=== PATIENT | male | born 1940 | race Caucasian/White ===

== ENCOUNTER 2023-02-08 13:03 | Outpatient (CLI) | payer MEDICARE, OTHER | END 2023-02-08 13:04 | disposition critical access hospital (66) | LOC: EMS 13:03 | DX: I95.9 Hypotension, unspecified (principal) | CPT/HCPCS: A0425; A0429 ==

== ENCOUNTER 2023-02-26 02:46 | Outpatient (CLI) | payer MEDICARE, OTHER | END 2023-02-26 23:59 | disposition critical access hospital (66) | LOC: EMS 02:46 | DX: T50.911A Poisoning by multiple unspecified drugs, medicaments and biological substances, accidental (unintentional), initial encounter (principal); R03.1 Nonspecific low blood-pressure reading; R07.89 Other chest pain; R42 Dizziness and giddiness; R11.0 Nausea | CPT/HCPCS: A0425; A0427 ==

== ENCOUNTER 2023-06-02 06:17 | Outpatient (CLI) | payer MEDICARE, OTHER | END 2023-06-02 06:18 | disposition EMS.NT | LOC: EMS 06:17 | DX: Z03.89 Encounter for observation for other suspected diseases and conditions ruled out (principal) ==

== ENCOUNTER 2023-06-24 08:57 | Emergency (ER) | payer MEDICARE ==
[2023-06-24] MEDS ORDERED: ONDANSETRON ODT 4 MG TABLET TL STA (09:38)
[2023-06-24 09:52] LABS: BASOPHILS % (AUTO) 0.5 %; EOSINOPHILS # (AUTO) 0.1 10^3/uL (0.0-0.7); HCT - HEMATOCRIT 39.7 % (42.0-52.0); HGB - HEMOGLOBIN 12.9 g/dL (14.0-18.0); LYMPHOCYTES % (AUTO) 24.4 %; MEAN CORPUSCULAR HEMOGLOBIN 31.6 pg (27.0-31.0); MEAN CORPUSCULAR HGB CONC 32.5 g/dL (32.0-36.0); MEAN CORPUSCULAR VOLUME 97.3 fL (80.0-94.0); MEAN PLATELET VOLUME 9.6 fL (7.4-11.4); MONOCYTES # (AUTO) 0.6 10^3/uL (0.0-1.0); NEUTROPHILS # (AUTO) 5.5 10^3/uL (1.5-6.6); NEUTROPHILS % (AUTO) 66.5 %; PLT - PLATELET COUNT 187 10^3/uL (130-450); RED BLOOD COUNT 4.08 10^6/uL (4.70-6.10); RED CELL DISTRIBUTION WIDTH 13.1 % (12.0-15.0); WHITE BLOOD COUNT 8.3 x10^3/uL (4.8-10.8)
[2023-06-24 10:29] LABS: ALBUMIN 3.8 g/dL (3.2-5.5); ALBUMIN/GLOBULIN RATIO 1.3 (1.0-2.2); BILIRUBIN,TOTAL 0.5 mg/dL (0.2-1.0); CALCIUM 9.2 mg/dL (8.5-10.3); CREATININE 1.2 mg/dL (0.6-1.3); TOTAL PROTEIN 6.7 g/dL (6.4-8.9)
[2023-06-24] MEDS ORDERED: SODIUM CHLORIDE 0.9% 1,000 ML IV STA (10:32)
[2023-06-24 10:33] LABS: BILIRUBIN,URINE NEGATIVE (NEGATIVE); GLUCOSE, URINE (UA) NEGATIVE (NEGATIVE); KETONES,URINE (UA) NEGATIVE (NEGATIVE); LEUKOCYTE ESTERASE, URINE MODERATE (NEGATIVE); NITRITE,URINE POSITIVE (NEGATIVE); OCCULT BLOOD,URINE NEGATIVE (NEGATIVE); PH,URINE 8.5 PH (5.0-7.5); PROTEIN,URINE TRACE mg/dL (NEGATIVE); UROBILINOGEN,URINE 0.2 (NORMAL) E.U./dL (NORMAL)
--- NOTE | 2023-06-24 10:35 | ED Physician Documentation ---
PD HPI ABD PAIN - Stated complaint Stated Complaint: LT SIDE PX,BACK PX - Chief complaint Chief Complaint: Abd Pain - History obtained from History obtained from: Patient, Family - History of Present Illness Timing - onset: How many weeks ago (1) Timing - duration: Weeks (1) Timing - details: Gradual onset, Still present Quality: Sharp, Pain Location: LUQ Radiation: Left flank Improved by: Laying still Worsened by: Moving, Position, Palpation Associated symptoms: Nausea Similar symptoms before: Diagnosis (kidney stone) Recently seen: Not recently seen - Additional information Additional information: Angel Orourke is an 82-year-old male with a history of traumatic brain injury who is reporting that over the past week he has had pain in his back if he goes to move or move around. He has been uncomfortable enough to have difficulty sleeping and is brought to the emergency department by his and daughter this morning. Review of Systems Constitutional: denies: Fever, Chills, Myalgias Ears: denies: Ear pain Nose: denies: Congestion Throat: denies: Sore throat Cardiac: denies: Chest pain / pressure, Palpitations Respiratory: denies: Dyspnea, Cough GI: reports: Abdominal Pain, Constipation (currently relieved). denies: Nausea, Vomiting, Diarrhea : denies: Dysuria, Frequency Skin: denies: Rash Musculoskeletal: reports: Back pain. denies: Neck pain, Extremity pain Neurologic: denies: Generalized weakness, Focal weakness, Numbness PD PAST MEDICAL HISTORY - Past Medical History Past Medical History: Yes Cardiovascular: Coronary artery disease Neuro: CVA : Kidney stones - Past Surgical History Past Surgical History: No - Present Medications Home Medications: Ambulatory Orders Medication Instructions Recorded Confirmed cephALEXin [Keflex] 500 mg PO Q6H #28 cap 06/24/23 - Allergies Allergies/Adverse Reactions: Allergies Allergy/AdvReac Type Severity Reaction Status Date / Time No Known Drug Allergies Allergy Verified 06/24/23 09:20 - Social History Does the pt smoke?: No Smoking Status: Never smoker Does the pt drink ETOH?: No Does the pt have substance abuse?: No - Immunizations Immunizations are current?: Yes - POLST Patient has POLST: No PD ED PE NORMAL - Vitals Vital signs reviewed: Yes (normal ) - General General: Alert and oriented X 3, No acute distress, Well developed/nourished - HEENT HEENT: Atraumatic, PERRL, EOMI, Other (dry mucous membranes ) - Neck Neck: Supple, no meningeal sign, No bony TTP - Cardiac Cardiac: RRR, No murmur - Respiratory Respiratory: No respiratory distress, Clear bilaterally - Abdomen Abdomen: Normal bowel sounds, Soft, Non tender, Non distended, No organomegaly - Back Back: No spinal TTP, Other (Tenderness to the back near paraspinous muscles at L2. 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, No motor deficit, No sensory deficit, Normal speech Eye Opening: Spontaneous Motor: Obeys Commands Verbal: Oriented GCS Score: 15 - Psych Psych: Normal mood, Normal affect Results - Vitals Vitals: Vital Signs - 24 hr 06/24/23 06/24/23 09:16 11:20 Temperature 36.0 C L Heart Rate 68 67 Respiratory 20 18 Rate Blood Pressure 130/75 212/133 H O2 Saturation 96 94 Oxygen O2 Source Room air - Labs Labs: Laboratory Tests 06/24/23 06/24/23 06/24/23 09:47 10:03 10:05 WBC 8.3 RBC 4.08 L Hgb 12.9 L Hct 39.7 L MCV 97.3 H MCH 31.6 H MCHC 32.5 RDW 13.1 Plt Count 187 MPV 9.6 Neut # (Auto) 5.5 Lymph # (Auto) 2.0 [place] # (Auto) 0.6 Eos # (Auto) 0.1 Baso # (Auto) 0.0 Absolute Nucleated RBC 0.00 Nucleated RBC % 0.0 Sodium 142 Potassium 4.0 Chloride 109 Carbon Dioxide 26 Anion Gap 7.0 BUN 23 H Creatinine 1.2 Estimated GFR (MDRD) 58 L Glucose 115 H Calcium 9.2 Total Bilirubin 0.5 AST 14 ALT 17 Alkaline Phosphatase 88 Total Protein 6.7 Albumin 3.8 Globulin 2.9 Albumin/Globulin Ratio 1.3 Lipase 28 Urine Color YELLOW Urine Clarity CLD Urine pH 8.5 H Ur Specific [place] 1.010 Urine Protein TRACE Urine Glucose (UA) NEGATIVE Urine Ketones NEGATIVE Urine Occult Blood NEGATIVE Urine Nitrite POSITIVE H Urine Bilirubin NEGATIVE Urine Urobilinogen 0.2 (NORMAL) Ur Leukocyte Esterase MODERATE H Urine RBC 0-5 Urine WBC >25 H Ur Squamous Epith Cells RARE Squamous Urine Crystals 6-10 Triple Phos Urine Bacteria Moderate H Ur Microscopic Review INDICATED Urine Culture Comments INDICATED - Rads (name of study) CT ab pel Relevant Findings:: Prelim report reviewed (Impression: No acute process. Normal appendix.), EMP independent interpretation of test Procedures - Bedside sono Bedside sono by EMP: With use of POCUS the the left kidney is imaged there is no evidence of hydronephrosis and the kidney is sonographically nontender. - IVC sono (time) 1020 Bedside IVC sono: IVC measures (cm) (0.93), Dehydration (est 1-2 liter deficit) PD Medical Decision Making - ED course Complexity details: reviewed old records, reviewed results, re-evaluated patient, considered differential, d/w patient, d/w family Reviewed Lab Results: We reviewed a complete blood count showing a normal white blood cell count hemoglobin mildly depressed at 12.9 hematocrit mildly depressed at 39.7 platelets normal at 187,000 the values for the hemoglobin hematocrit are similar for the patient with prior visits in January of last year BUN is mildly elevated at 23 creatinine normal at 1.2 electrolytes normal liver functions normal urinalysis shows a pH elevated at 8.5 a specific gravity 1.010 trace protein positive for nitrite moderate leukocyte Estrace 0-5 red blood cells per high-powered field and greater than 25 white blood cells per high-powered field with moderate bacteria. The specimen made the grade for culture. My interpretation of these results are the patient has infection in the urinary tract. He has tenderness to his back over L2 consistent with positioning of his kidney seen on CT scan and the diagnosis is being made of pyelonephritis. ED course: 82-year-old Angel Orourke presents to the emergency department with left flank pain without fever or dysuria and he appears to have urinary tract infection and a tender left kidney. He is diagnosed with pyelonephritis is given a dose of Rocephin intravenously. He is found to be dehydrated on interrogation of the inferior vena cava with POCUS and he is administered saline as well. At the conclusion of treatment he feels improved his pain is improved as well. Departure - Departure Disposition: 01 Home, Self Care Clinical Impression: Pyelonephritis Condition: Stable Instructions: ED UTI Pyelonephritis Male Follow-Up: Michelle Victoria PA [Primary Care Provider] - Prescriptions: cephALEXin [Keflex] 500 mg PO Q6H #28 cap Comments: Angel, today it looks like you have an infection in your kidney on the left side and we have E scribed some antibiotic to the [facility] in [place]. Our expectations with treatment are slow and steady improvement in the pain in your back and resolution of your symptoms within a week. Progression of symptoms including vomiting or fever are reasons to return to the emergency department. Forms: PCP List
[2023-06-24 10:38] LABS: CLARITY,URINE CLD (CLEAR)
[2023-06-24] MEDS ORDERED: iohexoL-300 100 ML VIAL ONE (10:42)
[2023-06-24 10:48] LABS: BACTERIA,URINE Moderate /HPF (None Seen); CRYSTALS,URINE 6-10 Triple Phos /LPF; RBC,URINE 0-5 /HPF (0-5); SQUAMOUS EPITHELIAL CELL,UR RARE Squamous (<= Few); WBC,URINE >25 /HPF (0-3)
[2023-06-24] MEDS ORDERED: cefTRIAXone 1 GM in SODIUM CHLORIDE 0.9% MINIBAG 100 ML IV STA (11:08)
--- NOTE | 2023-06-24 12:03 | CT Report ---
PROCEDURE: Abdomen/Pelvis W INDICATIONS: LUQ pain CONTRAST: Omni 300 100ml TECHNIQUE: After the administration of intravenous contrast, a CT scan of the abdomen and pelvis was performed. Images were recorded and evaluated at appropriate window settings. Reformats: coronal and sagittal. F or radiation dose reduction, the following was used: automated exposure control, adjustment of mA and /or kV according to patient size. COMPARISON: None. FINDINGS: Image quality: Diagnostic. Lower chest: Unremarkable. Liver: No solid mass. Gallbladder and biliary tree: Calculi within the gallbladder lumen are present. Spleen: No splenomegaly. Pancreas: No pancreatic ductal dilation. Adrenals: No adrenal nodule. Kidneys and ureters: No hydronephrosis. No renal cystic lesion which requires follow up. No solid mas s. Stomach, bowel and peritoneum: No bowel distension. No pathologic free fluid. Normal appendix. Lymph nodes: No central or retroperitoneal adenopathy. Vessels: No infrarenal aortic aneurysm. PELVIS Reproductive organs: Unremarkable. Bladder: No abnormal wall thickening, accounting for underdistention. Pelvic lymph nodes: No pelvic adenopathy by size criteria. Bones: No aggressive osseous abnormality. Other: No significant ventral or inguinal hernia. IMPRESSION: 1. No acute process. 2. Normal appendix. Reviewed by: Urban Rhodes MD on 06/24/2023 12:01 PM [facility] Approved by: Urban Rhodes MD on 06/24/2023 12:01 PM [facility] Station ID: [id number]
[2023-06-24 13:24] VITALS: BP 169/108; O2SAT 96
[2023-06-24] MEDS ORDERED: iohexoL-300 100 ML VIAL IVP ONE (15:18)
== END 2023-06-24 13:24 | disposition home or self-care (01) ==
LOC: ED 08:57
DX: N12 Tubulo-interstitial nephritis, not specified as acute or chronic (principal); B96.4 Proteus (mirabilis) (morganii) as the cause of diseases classified elsewhere; E86.0 Dehydration; I25.10 Atherosclerotic heart disease of native coronary artery without angina pectoris; Z86.73 Personal history of transient ischemic attack (TIA), and cerebral infarction without residual deficits
CPT/HCPCS: 36415; 74177; 80053; 81001; 83690; 85025; 87077; 87086; 87181; 96365; 96366; 99284; Q9967; 81003

== ENCOUNTER 2023-07-19 10:49 | Outpatient (CLI) | payer MEDICARE | END 2023-07-19 23:59 | disposition critical access hospital (66) | LOC: EMS 10:49 | DX: R55 Syncope and collapse (principal); I95.9 Hypotension, unspecified; M54.2 Cervicalgia; R51.9 Headache, unspecified; R53.1 Weakness | CPT/HCPCS: A0425; A0429 ==

== ENCOUNTER 2023-07-19 11:20 | Emergency (ER) | payer MEDICARE ==
--- NOTE | 2023-07-19 11:40 | ED Physician Documentation ---
History of Present Illness - Stated complaint Stated Complaint: GLF/HEAD INJURY - Chief complaint Chief Complaint: Neuro - History obtained from History obtained from: Patient, EMS - Additonal information Additional information: 82-year-old gentleman with history of traumatic brain injury, epilepsy, and coronary disease who lives with family and is generally wheelchair-bound but transfers. He had a reported syncopal episode on the toilet today and fell. Patient actually denies the syncope but paramedics that he was syncopal and was hypotensive on scene with a systolic of 90. Patient does not feel injured per se, but paramedics report that he did hit his head and was injured. Patient's only complaint is shakiness of the legs. PD PAST MEDICAL HISTORY - Past Medical History Past Medical History: Yes Cardiovascular: Coronary artery disease Neuro: CVA : Kidney stones - Past Surgical History Past Surgical History: No - Present Medications Home Medications: Ambulatory Orders Medication Instructions Recorded Confirmed Apixaban [Eliquis] 5 mg PO BID 07/19/23 07/19/23 Aspirin [[place] Aspirin] 81 mg PO DAILY 07/19/23 07/19/23 Atorvastatin [Lipitor] 20 mg PO QPM 07/19/23 07/19/23 Docusate Sodium [Dss] 250 mg PO DAILY PRN 07/19/23 07/19/23 Finasteride [Proscar] 5 mg PO DAILY 07/19/23 07/19/23 Furosemide [Lasix] 20 mg PO DAILY 07/19/23 07/19/23 Gabapentin [Neurontin] 600 mg PO BID 07/19/23 07/19/23 Isosorbide Mononitrate [Isosorbide 30 mg PO DAILY 07/19/23 07/19/23 Mononitrate ER] Losartan [Cozaar] 50 mg PO BID 07/19/23 07/19/23 Nitroglycerin [Nitrostat] 0.4 mg SL [id number] PRN 07/19/23 07/19/23 Pantoprazole [Protonix] 40 mg PO DAILY 07/19/23 07/19/23 Tamsulosin [Flomax] 1 cap PO DAILY 07/19/23 07/19/23 Trazodone HCl 100 mg PO HS 07/19/23 07/19/23 Venlafaxine HCl [Effexor Xr] 300 mg PO HS 07/19/23 07/19/23 carvediloL [Coreg] 12.5 mg PO BID 07/19/23 07/19/23 cloNIDine [Catapres] 0.1 mg PO ONCE PRN 07/19/23 07/19/23 diphenhydrAMINE [Benadryl] 25 mg PO HS 07/19/23 07/19/23 hydrALAZINE [Apresoline] 25 mg PO BID 07/19/23 07/19/23 lamoTRIgine [Lamictal] 150 mg PO BID 07/19/23 07/19/23 levETIRAcetam [Keppra] 100 mg PO BID 07/19/23 07/19/23 - Allergies Allergies/Adverse Reactions: Allergies Allergy/AdvReac Type Severity Reaction Status Date / Time No Known Drug Allergies Allergy Verified 07/19/23 11:35 - Social History Does the pt smoke?: No Smoking Status: Never smoker Does the pt drink ETOH?: No Does the pt have substance abuse?: No - Immunizations Immunizations are current?: Yes - POLST Patient has POLST: No PD ED PE NORMAL - Vitals Vital signs reviewed: Yes - General General: Alert and oriented X 3, No acute distress - HEENT HEENT: PERRL, EOMI, Other (Dry mucous membranes) - Neck Neck: Supple, no meningeal sign, No bony TTP - Cardiac Cardiac: RRR, No murmur - Respiratory Respiratory: No respiratory distress, Clear bilaterally - Abdomen Abdomen: Non tender - Back Back: No CVA TTP, No spinal TTP - Derm Derm: Normal color, Warm and dry - Extremities Extremities: Other (All major joints are palpated and ranged without tenderness or limited range of motion.) - Neuro Neuro: Alert and oriented X 3, 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 Relevant findings are: Rate: Rate (enter#) (69) Rhythm: NSR [place]: Normal Intervals: Prolonged MS, LBBB (incomplete) QRS: LVH Ischemia: No: ST elevation c/w ischemia - Labs Labs: Laboratory Tests 07/19/23 07/19/23 07/19/23 11:27 11:27 11:51 WBC 7.9 RBC 4.33 L Hgb 13.8 L Hct 43.0 MCV 99.3 H MCH 31.9 H MCHC 32.1 RDW 12.9 Plt Count 174 MPV 9.4 Neut # (Auto) 5.9 Lymph # (Auto) 1.3 L [place] # (Auto) 0.5 Eos # (Auto) 0.1 Baso # (Auto) 0.0 Absolute Nucleated RBC 0.00 Nucleated RBC % 0.0 Sodium 141 Potassium 4.1 Chloride 107 Carbon Dioxide 29 Anion Gap 5.0 L BUN 23 H Creatinine 1.6 H Estimated GFR (MDRD) 42 L Glucose 231 H Lactic Acid 3.2 H* Calcium 9.6 Phosphorus 2.8 Magnesium 2.1 Total Bilirubin 0.5 AST 16 ALT 19 Alkaline Phosphatase 89 Total Creatine Kinase 37 Total Protein 6.7 Albumin 3.8 Globulin 2.9 Albumin/Globulin Ratio 1.3 Urine Color Urine Clarity Urine pH Ur Specific [place] Urine Protein Urine Glucose (UA) Urine Ketones Urine Occult Blood Urine Nitrite Urine Bilirubin Urine Urobilinogen Ur Leukocyte Esterase Ur Microscopic Review Urine Culture Comments Ethyl Alcohol < 10.0 07/19/23 07/19/23 13:38 13:39 WBC RBC Hgb Hct MCV MCH MCHC RDW Plt Count MPV Neut # (Auto) Lymph # (Auto) [place] # (Auto) Eos # (Auto) Baso # (Auto) Absolute Nucleated RBC Nucleated RBC % Sodium Potassium Chloride Carbon Dioxide Anion Gap BUN Creatinine Estimated GFR (MDRD) Glucose Lactic Acid 2.0 Calcium Phosphorus Magnesium Total Bilirubin AST ALT Alkaline Phosphatase Total Creatine Kinase Total Protein Albumin Globulin Albumin/Globulin Ratio Urine Color LIGHT YELLOW Urine Clarity CLEAR Urine pH 5.5 Ur Specific [place] 1.015 Urine Protein NEGATIVE Urine Glucose (UA) NEGATIVE Urine Ketones NEGATIVE Urine Occult Blood NEGATIVE Urine Nitrite NEGATIVE Urine Bilirubin NEGATIVE Urine Urobilinogen 0.2 (NORMAL) Ur Leukocyte Esterase NEGATIVE Ur Microscopic Review NOT INDICATED Urine Culture Comments NOT INDICATED Ethyl Alcohol - Rads (name of study) CT head showing remote craniotomy with temporal encephalomalacia but no trauma. CT C-spine with degenerative changes, no trauma. Relevant Findings:: Final report received, EMP independent interpretation of test PD Medical Decision Making - ED course ED course: 82-year-old gentleman who is mostly in a wheelchair and transfers on his own presents after a fall in the bathroom with likely syncopal episode today and potential report of head injury. Workup in the emergency department demonstrates an unremarkable CBC with just mild anemia and macrocytic indices, his CMP does show evidence of JOY with prerenal azotemia and a lactic acidosis. Urinalysis was negative and there is nothing in the history or physical to suggest infection so he was administered 2 L of IV fluid and on recheck his lactate was now normal at 2.0. He was feeling better and back to normal and had no complaints at that point. He is on 2 diuretics and the queried whether she should continue those. I discussed with them for a while that the ideal thing would be if he could weigh himself daily and figure out what his usual weight is and then titrate his diuretics based on that, because of his mobility though that will not be possible so advised to titrate diuretics based on any edema or lack thereof. Departure - Departure Disposition: 01 Home, Self Care Clinical Impression: Syncope Qualifiers: Syncope type: unspecified Qualified Code(s): R55 - Syncope and collapse Head injury Qualifiers: Encounter type: initial encounter Qualified Code(s): S09.90XA - Unspecified injury of head, initial encounter Condition: Good Record reviewed to determine appropriate education?: Yes Instructions: ED Fainting Unkn Cause Comments: He was seen today for syncopal episode with possible head injury. We did find him to be dehydrated and we rechecked his dehydration numbers after 2 L of IV fluids and they were much better. The remainder of his blood work was unremarkable. It sounds like it is a recurrent issue with him getting dehydrated so you could stop his diuretics for now and just restart them if he starts to feel like he is getting puffy in his ankles or short of breath. We did talk about maybe trying to get him weight every day to see what his weight is but given his mobility issues that obviously will not be doable. Call your doctor to arrange a follow-up appointment, make the next available appointment. In the interim, return anytime if worse or if new symptoms develop. Forms: PCP List Discharge Date/Time: 07/19/23 15:03
[2023-07-19 11:45] LABS: BASOPHILS % (AUTO) 0.4 %; EOSINOPHILS # (AUTO) 0.1 10^3/uL (0.0-0.7); HGB - HEMOGLOBIN 13.8 g/dL (14.0-18.0); LYMPHOCYTES # (AUTO) 1.3 10^3/uL (1.5-3.5); LYMPHOCYTES % (AUTO) 16.6 %; MEAN CORPUSCULAR HEMOGLOBIN 31.9 pg (27.0-31.0); MEAN CORPUSCULAR HGB CONC 32.1 g/dL (32.0-36.0); MEAN CORPUSCULAR VOLUME 99.3 fL (80.0-94.0); MEAN PLATELET VOLUME 9.4 fL (7.4-11.4); MONOCYTES # (AUTO) 0.5 10^3/uL (0.0-1.0); MONOCYTES % (AUTO) 6.8 %; NEUTROPHILS # (AUTO) 5.9 10^3/uL (1.5-6.6); NEUTROPHILS % (AUTO) 74.9 %; PLT - PLATELET COUNT 174 10^3/uL (130-450); RED BLOOD COUNT 4.33 10^6/uL (4.70-6.10); RED CELL DISTRIBUTION WIDTH 12.9 % (12.0-15.0); WHITE BLOOD COUNT 7.9 x10^3/uL (4.8-10.8)
[2023-07-19] MEDS: SODIUM CHLORIDE 0.9% 1,000 ML IV STA ×2 (11:47→12:54)
[2023-07-19 12:06] LABS: ALBUMIN 3.8 g/dL (3.2-5.5); ALBUMIN/GLOBULIN RATIO 1.3 (1.0-2.2); ALKALINE PHOSPHATASE 89 IU/L (42-121); ALT ALANINE AMINOTRANSFERASE 19 IU/L (10-60); AST ASPARTATE AMINOTRANSFERASE 16 IU/L (10-42); BILIRUBIN,TOTAL 0.5 mg/dL (0.2-1.0); BUN - BLOOD UREA NITROGEN 23 mg/dL (6-20); CALCIUM 9.6 mg/dL (8.5-10.3); CARBON DIOXIDE - CO2 29 mmol/L (21-32); CHLORIDE 107 mmol/L (101-111); CK- CREATINE KINASE 37 IU/L (30-223); CREATININE 1.6 mg/dL (0.6-1.3); ETOH - ETHANOL < 10.0 mg/dL; GFR - MDRD 42 (>89); GLUCOSE 231 mg/dL (74-104); MAGNESIUM 2.1 mg/dL (1.7-2.3); PHOSPHORUS 2.8 mg/dL (2.5-5.0); POTASSIUM 4.1 mmol/L (3.5-4.5); SODIUM 141 mmol/L (135-145); TOTAL PROTEIN 6.7 g/dL (6.4-8.9)
--- NOTE | 2023-07-19 13:09 | CT Report ---
PROCEDURE: Head WO INDICATIONS: head inj TECHNIQUE: Noncontrast 4.5 mm thick angled axial sections acquired from the foramen magnum to the vertex. For r adiation dose reduction, the following was used: automated exposure control, adjustment of mA and/or kV according to patient size. COMPARISON: 02/08/2023. FINDINGS: Image quality: Excellent. CSF spaces: Basal cisterns are patent. No extra-axial fluid collections. Ventricles are normal in size and shape. Brain: No midline shift. No intracranial masses or hemorrhage. Rahman-white matter interface is norm al. Anterior right temporal encephalomalacia, unchanged, possibly remote trauma versus infarct versu s resection. Age-related volume loss and small vessel ischemic change. Skull and face: Remote right temporal craniotomy. Calvarium and visualized facial bones are intact, without suspicious lesions. Sinuses: Visualized sinuses and mastoids are clear. IMPRESSION: 1. Stable findings, remote right temporal craniotomy and anterior temporal encephalomalacia. 2. No acute intracranial process. Reviewed by: Jacinto Bailey MD on 07/19/2023 1:08 PM PST Approved by: Jacinto Bailey MD on 07/19/2023 1:08 PM PST Station ID: [id number]
--- NOTE | 2023-07-19 13:11 | CT Report ---
PROCEDURE: Cervical Spine WO INDICATIONS: neck pain, fall TECHNIQUE: Noncontrast 3 mm thick sections acquired from the skull base to the T4 level. Sagittal and coronal r eformats were then constructed. For radiation dose reduction, the following was used: automated exp osure control, adjustment of mA and/or kV according to patient size. COMPARISON: None. FINDINGS: Image quality: Excellent. Multilevel cervical facet arthropathy. Posterior disc plus osteophyte at C4-C5 and C5-C6 with a degre e of canal stenosis at these levels. Multilevel bony foraminal narrowing. Bones: No fractures or dislocations. Visualized superior ribs are intact. Soft tissues: Prevertebral soft tissues are normal in thickness. No paravertebral hematomas. No ap ical pneumothoraces. IMPRESSION: 1. No acute cervical fracture or dislocation. 2. Cervical spondylosis. Findings include multilevel facet arthropathy, foraminal narrowing, and a de gree of canal stenosis. Reviewed by: Jacinto Bailey MD on 07/19/2023 1:10 PM PST Approved by: Jacinto Bailey MD on 07/19/2023 1:10 PM PST Station ID: [id number]
[2023-07-19 14:10] LABS: CLARITY,URINE CLEAR (CLEAR); LEUKOCYTE ESTERASE, URINE NEGATIVE (NEGATIVE); NITRITE,URINE NEGATIVE (NEGATIVE); UROBILINOGEN,URINE 0.2 (NORMAL) E.U./dL (NORMAL)
[2023-07-19 14:11] LABS: BILIRUBIN,URINE NEGATIVE (NEGATIVE); GLUCOSE, URINE (UA) NEGATIVE (NEGATIVE); KETONES,URINE (UA) NEGATIVE (NEGATIVE); OCCULT BLOOD,URINE NEGATIVE (NEGATIVE); PH,URINE 5.5 PH (5.0-7.5); PROTEIN,URINE NEGATIVE (NEGATIVE)
[2023-07-19 15:10] VITALS: BP 149/89; O2SAT 100
== END 2023-07-19 15:03 | disposition home or self-care (01) ==
LOC: EDUNIT# → ED 11:20
DX: R55 Syncope and collapse (principal); S09.90XA Unspecified injury of head, initial encounter; W18.12XA Fall from or off toilet with subsequent striking against object, initial encounter; Y93.E8 Activity, other personal hygiene; Y92.002 Bathroom of unspecified non-institutional (private) residence as the place of occurrence of the external cause; E86.0 Dehydration; Z79.899 Other long term (current) drug therapy
CPT/HCPCS: 36415; 70450; 72125; 80053; 81003; 82550; 83605; 83735; 84100; 85025; 93005; 96360; 96361; 99284; G0480; 81001; 82077; 87086

== ENCOUNTER 2023-08-05 08:57 | Outpatient (CLI) | payer MEDICARE | END 2023-08-05 23:59 | disposition EMS.NT | LOC: EMS 08:57 | DX: Z74.2 Need for assistance at home and no other household member able to render care (principal) ==

== ENCOUNTER 2023-09-02 17:37 | Outpatient (CLI) | payer MEDICARE | END 2023-09-02 17:38 | disposition critical access hospital (66) | LOC: EMS 17:37 | DX: R46.89 Other symptoms and signs involving appearance and behavior (principal); R30.9 Painful micturition, unspecified; F03.90 Unspecified dementia, unspecified severity, without behavioral disturbance, psychotic disturbance, mood disturbance, and anxiety | CPT/HCPCS: A0425; A0427 ==

== ENCOUNTER 2023-09-02 18:10 | Observation (INO) | payer MEDICARE ==
--- NOTE | 2023-09-02 18:15 | ED Physician Documentation ---
PD HPI ALTERED MENTAL STATUS - Stated complaint Stated Complaint: AMS - History obtained from History obtained from: Patient, EMS - Additional information Additional information: He has a history of TBI, epilepsy, coronary disease, potentially dementia. Lives at home with family. Over the last couple of days he has had foul- smelling urine, slight confusion and feeling warm. PD PAST MEDICAL HISTORY - Past Medical History Cardiovascular: Coronary artery disease Neuro: CVA : Kidney stones - Past Surgical History Past Surgical History: No - Present Medications Home Medications: Ambulatory Orders Medication Instructions Recorded Confirmed Apixaban [Eliquis] 5 mg PO BID 07/19/23 09/02/23 Aspirin [[place] Aspirin] 81 mg PO DAILY 07/19/23 09/02/23 Atorvastatin [Lipitor] 20 mg PO QPM 07/19/23 09/02/23 Docusate Sodium [Dss] 250 mg PO DAILY PRN 07/19/23 09/02/23 Finasteride [Proscar] 5 mg PO DAILY 07/19/23 09/02/23 Furosemide [Lasix] 10 mg PO DAILY 07/19/23 09/02/23 Gabapentin [Neurontin] 600 mg PO BID 07/19/23 09/02/23 Isosorbide Mononitrate [Isosorbide 30 mg PO DAILY 07/19/23 09/02/23 Mononitrate ER] Losartan [Cozaar] 50 mg PO BID 07/19/23 09/02/23 Nitroglycerin [Nitrostat] 0.4 mg SL [id number] PRN 07/19/23 09/02/23 Pantoprazole [Protonix] 40 mg PO DAILY 07/19/23 09/02/23 Tamsulosin [Flomax] 1 cap PO DAILY 07/19/23 09/02/23 Trazodone HCl 100 mg PO HS 07/19/23 09/02/23 Venlafaxine HCl [Effexor Xr] 300 mg PO HS 07/19/23 09/02/23 carvediloL [Coreg] 12.5 mg PO BID 07/19/23 09/02/23 cloNIDine [Catapres] 0.1 mg PO ONCE PRN 07/19/23 09/02/23 diphenhydrAMINE [Benadryl] 25 mg PO HS 07/19/23 09/02/23 hydrALAZINE [Apresoline] 25 mg PO BID 07/19/23 09/02/23 lamoTRIgine [Lamictal] 150 mg PO BID 07/19/23 09/02/23 levETIRAcetam [Keppra] 100 mg PO BID 07/19/23 09/02/23 - Allergies Allergies/Adverse Reactions: Allergies Allergy/AdvReac Type Severity Reaction Status Date / Time No Known Drug Allergies Allergy Verified 09/02/23 18:42 - Social History Does the pt smoke?: No Smoking Status: Never smoker Does the pt drink ETOH?: No Does the pt have substance abuse?: No - Immunizations Immunizations are current?: Yes - POLST Patient has POLST: No PD ED PE NORMAL - Vitals Vital signs reviewed: Yes - General General: Other (He is alert and oriented to person and place but not time or events.) - HEENT HEENT: Other (Dry mucous membranes) - Neck Neck: Supple, no meningeal sign, No bony TTP - Cardiac Cardiac: RRR, No murmur, Other (Extensive sternotomy scar) - Respiratory Respiratory: No respiratory distress, Clear bilaterally - Abdomen Abdomen: Normal bowel sounds, Soft, Non tender - Neuro Eye Opening: Spontaneous Motor: Obeys Commands Verbal: Confused GCS Score: 14 Results - Vitals Vitals: Vital Signs - 24 hr 09/02/23 09/02/23 18:13 21:00 Temperature 37.6 C Heart Rate 80 90 Respiratory 16 20 Rate Blood Pressure 149/78 H 126/66 O2 Saturation 94 98 Oxygen O2 Source Room air - EKG (time done) 2016 EKG releavant findings:: EKG personally interpreted by author of this note. Relevant findings are: Rate: Rate (enter#) (75) Rhythm: NSR, LAE [place]: Normal Intervals: Prolonged QT QRS: LVH Ischemia: Non specific changes. No: ST elevation c/w ischemia - Labs Labs: Laboratory Tests 09/02/23 09/02/23 09/02/23 18:25 18:30 18:30 WBC 7.8 RBC 4.37 L Hgb 13.5 L Hct 42.3 MCV 96.8 H MCH 30.9 MCHC 31.9 L RDW 13.1 Plt Count 176 MPV 9.5 Neut # (Auto) 7.2 H Lymph # (Auto) 0.3 L [place] # (Auto) 0.3 Eos # (Auto) 0.0 Baso # (Auto) 0.0 Absolute Nucleated RBC 0.00 Nucleated RBC % 0.0 Sodium 141 Potassium 3.6 Chloride 109 Carbon Dioxide 26 Anion Gap 6.0 BUN 24 H Creatinine 1.3 Estimated GFR (MDRD) 53 L Glucose 169 H Lactic Acid Calcium 8.5 Magnesium 1.6 L Total Bilirubin 0.8 AST 15 ALT 15 Alkaline Phosphatase 83 Troponin I High Sens B-Natriuretic Peptide Total Protein 6.2 L Albumin 3.6 Globulin 2.6 Albumin/Globulin Ratio 1.4 Urine Color Urine Clarity Urine pH Ur Specific [place] Urine Protein Urine Glucose (UA) Urine Ketones Urine Occult Blood Urine Nitrite Urine Bilirubin Urine Urobilinogen Ur Leukocyte Esterase Ur Microscopic Review Urine Culture Comments Nasal Adenovirus (PCR) NOT DETECTED Nasal B. parapertussis DNA (PCR) NOT DETECTED Nasal Coronavir 229E PCR NOT DETECTED Nasal Coronavir HKU1 PCR NOT DETECTED Nasal Coronavir NL63 PCR NOT DETECTED Nasal Coronavir OC43 PCR NOT DETECTED Nasal Enterovir/Rhinovir PCR NOT DETECTED Nasal Influenza B PCR NOT DETECTED Nasal Influenza A PCR NOT DETECTED Nasal Parainfluen 1 PCR NOT DETECTED Nasal Parainfluen 2 PCR NOT DETECTED Nasal Parainfluen 3 PCR NOT DETECTED Nasal Parainfluen 4 PCR NOT DETECTED Nasal RSV (PCR) NOT DETECTED Nasal B.pertussis DNA PCR NOT DETECTED Nasal C.pneumoniae (PCR) NOT DETECTED [place] Human Metapneumo PCR NOT DETECTED Nasal M.pneumoniae (PCR) NOT DETECTED Nasal SARS-CoV-2 (PCR) NOT DETECTED Urine Opiates Screen Ur Buprenorphine Scrn Ur Oxycodone Screen Urine Methadone Screen Ur Barbiturates Screen Ur Tricyclics Screen Ur Phencyclidine Scrn Ur Amphetamine Screen U Methamphetamines Scrn U Benzodiazepines Scrn Urine Cocaine Screen U Cannabinoids Screen Ur Drug Screen Comment Ethyl Alcohol 09/02/23 09/02/23 09/02/23 18:30 18:30 18:37 WBC RBC Hgb Hct MCV MCH MCHC RDW Plt Count MPV Neut # (Auto) Lymph # (Auto) [place] # (Auto) Eos # (Auto) Baso # (Auto) Absolute Nucleated RBC Nucleated RBC % Sodium Potassium Chloride Carbon Dioxide Anion Gap BUN Creatinine Estimated GFR (MDRD) Glucose Lactic Acid 2.3 H Calcium Magnesium Total Bilirubin AST ALT Alkaline Phosphatase Troponin I High Sens 29.3 H* B-Natriuretic Peptide 804 H Total Protein Albumin Globulin Albumin/Globulin Ratio Urine Color Urine Clarity Urine pH Ur Specific [place] Urine Protein Urine Glucose (UA) Urine Ketones Urine Occult Blood Urine Nitrite Urine Bilirubin Urine Urobilinogen Ur Leukocyte Esterase Ur Microscopic Review Urine Culture Comments Nasal Adenovirus (PCR) Nasal B. parapertussis DNA (PCR) Nasal Coronavir 229E PCR Nasal Coronavir HKU1 PCR Nasal Coronavir NL63 PCR Nasal Coronavir OC43 PCR Nasal Enterovir/Rhinovir PCR Nasal Influenza B PCR Nasal Influenza A PCR Nasal Parainfluen 1 PCR Nasal Parainfluen 2 PCR Nasal Parainfluen 3 PCR Nasal Parainfluen 4 PCR Nasal RSV (PCR) Nasal B.pertussis DNA PCR Nasal C.pneumoniae (PCR) Krz[place]tof Human Metapneumo PCR Nasal M.pneumoniae (PCR) Nasal SARS-CoV-2 (PCR) Urine Opiates Screen Ur Buprenorphine Scrn Ur Oxycodone Screen Urine Methadone Screen Ur Barbiturates Screen Ur Tricyclics Screen Ur Phencyclidine Scrn Ur Amphetamine Screen U Methamphetamines Scrn U Benzodiazepines Scrn Urine Cocaine Screen U Cannabinoids Screen Ur Drug Screen Comment Ethyl Alcohol < 10.0 09/02/23 09/02/23 09/02/23 19:20 19:20 21:38 WBC RBC Hgb Hct MCV MCH MCHC RDW Plt Count MPV Neut # (Auto) Lymph # (Auto) [place] # (Auto) Eos # (Auto) Baso # (Auto) Absolute Nucleated RBC Nucleated RBC % Sodium Potassium Chloride Carbon Dioxide Anion Gap BUN Creatinine Estimated GFR (MDRD) Glucose Lactic Acid Calcium Magnesium Total Bilirubin AST ALT Alkaline Phosphatase Troponin I High Sens 33.3 H* B-Natriuretic Peptide Total Protein Albumin Globulin Albumin/Globulin Ratio Urine Color YELLOW Urine Clarity CLEAR Urine pH 6.0 Ur Specific [place] 1.025 Urine Protein NEGATIVE Urine Glucose (UA) NEGATIVE Urine Ketones NEGATIVE Urine Occult Blood NEGATIVE Urine Nitrite NEGATIVE Urine Bilirubin NEGATIVE Urine Urobilinogen 0.2 (NORMAL) Ur Leukocyte Esterase NEGATIVE Ur Microscopic Review NOT INDICATED Urine Culture Comments NOT INDICATED Nasal Adenovirus (PCR) Nasal B. parapertussis DNA (PCR) Nasal Coronavir 229E PCR Nasal Coronavir HKU1 PCR Nasal Coronavir NL63 PCR Nasal Coronavir OC43 PCR Nasal Enterovir/Rhinovir PCR Nasal Influenza B PCR Nasal Influenza A PCR Nasal Parainfluen 1 PCR Nasal Parainfluen 2 PCR Nasal Parainfluen 3 PCR Nasal Parainfluen 4 PCR Nasal RSV (PCR) Nasal B.pertussis DNA PCR Nasal C.pneumoniae (PCR) [place] Human Metapneumo PCR Nasal M.pneumoniae (PCR) Nasal SARS-CoV-2 (PCR) Urine Opiates Screen NEGATIVE Ur Buprenorphine Scrn NEGATIVE Ur Oxycodone Screen NEGATIVE Urine Methadone Screen NEGATIVE Ur Barbiturates Screen NEGATIVE Ur Tricyclics Screen NEGATIVE Ur Phencyclidine Scrn NEGATIVE Ur Amphetamine Screen NEGATIVE U Methamphetamines Scrn NEGATIVE U Benzodiazepines Scrn NEGATIVE Urine Cocaine Screen NEGATIVE U Cannabinoids Screen NEGATIVE Ur Drug Screen Comment CUTOFF CONC BELOW: Ethyl Alcohol - Rads (name of study) 1v cxr Relevant Findings:: Final report received, EMP independent interpretation of test CT of the head demonstrates a right temporal craniotomy and encephalomalacia, no acute disease Relevant Findings:: Final report received, EMP independent interpretation of test PD Medical Decision Making - ED course ED course: Single view chest x-ray demonstrates cardiomegaly with increased pulmonary markings concerning for pulmonary edema. CBC showing mild normocytic anemia. CMP showing mild prerenal azotemia with mild elevation in lactate. Urine normal. [employer] respiratory panel unremarkable. Daughter and arrived later. They tell me he was like this once due to an acute depressive episode after some deaths in the family. That said nothing stressful has happened lately. He has been complaining of chest pain as well. They thought he might be dehydrated, he has had similar milder episodes in the past which resolved with IV fluids. We are giving him some IV fluids but these were stopped as the chest x-ray demonstrated some concern for pulmonary edema. While in the emergency department he did have some very mild improvement in his mental status. We did check a troponin base of the chest pain and this was mildly elevated and on repeat was basically flat. The BNP corroborates the chest x-ray with mild heart failure but no hypoxemia. At this point the reason for his delirium is unclear and seems reasonable to place him in observation. Spoke with Dr. STEPHENS for admission at 10:25 PM. Departure - Departure Disposition: ED Place in Observation Clinical Impression: Delirium, Elevated troponin I level Condition: Stable Forms: PCP List
[2023-09-02 18:44] LABS: BASOPHILS % (AUTO) 0.1 %; HCT - HEMATOCRIT 42.3 % (42.0-52.0); HGB - HEMOGLOBIN 13.5 g/dL (14.0-18.0); LYMPHOCYTES # (AUTO) 0.3 10^3/uL (1.5-3.5); LYMPHOCYTES % (AUTO) 3.2 %; MEAN CORPUSCULAR HEMOGLOBIN 30.9 pg (27.0-31.0); MEAN CORPUSCULAR HGB CONC 31.9 g/dL (32.0-36.0); MEAN CORPUSCULAR VOLUME 96.8 fL (80.0-94.0); MEAN PLATELET VOLUME 9.5 fL (7.4-11.4); MONOCYTES # (AUTO) 0.3 10^3/uL (0.0-1.0); MONOCYTES % (AUTO) 3.2 %; NEUTROPHILS # (AUTO) 7.2 10^3/uL (1.5-6.6); NEUTROPHILS % (AUTO) 93.1 %; PLT - PLATELET COUNT 176 10^3/uL (130-450); RED BLOOD COUNT 4.37 10^6/uL (4.70-6.10); RED CELL DISTRIBUTION WIDTH 13.1 % (12.0-15.0); WHITE BLOOD COUNT 7.8 x10^3/uL (4.8-10.8)
[2023-09-02 18:50] LABS: MAGNESIUM 1.6 mg/dL (1.7-2.3)
[2023-09-02 18:56] LABS: ALBUMIN 3.6 g/dL (3.2-5.5); ALBUMIN/GLOBULIN RATIO 1.4 (1.0-2.2); BILIRUBIN,TOTAL 0.8 mg/dL (0.2-1.0); CALCIUM 8.5 mg/dL (8.5-10.3); CREATININE 1.3 mg/dL (0.6-1.3); POTASSIUM 3.6 mmol/L (3.5-4.5); TOTAL PROTEIN 6.2 g/dL (6.4-8.9)
[2023-09-02 19:27] LABS: BILIRUBIN,URINE NEGATIVE (NEGATIVE); GLUCOSE, URINE (UA) NEGATIVE (NEGATIVE); KETONES,URINE (UA) NEGATIVE (NEGATIVE); LEUKOCYTE ESTERASE, URINE NEGATIVE (NEGATIVE); NITRITE,URINE NEGATIVE (NEGATIVE); OCCULT BLOOD,URINE NEGATIVE (NEGATIVE); PROTEIN,URINE NEGATIVE (NEGATIVE); UROBILINOGEN,URINE 0.2 (NORMAL) E.U./dL (NORMAL)
--- NOTE | 2023-09-02 19:27 | XRAY Report ---
PROCEDURE: Chest 1V INDICATIONS: cough TECHNIQUE: One view of the chest was acquired. COMPARISON: 02/08/2023. FINDINGS: Surgical changes and devices: Median sternotomy wires Lungs and pleura: No pleural effusions or pneumothorax. Prominent interstitial markings. Mediastinum: Mediastinal contours appear normal. Heart size is enlarged. Bones and chest wall: No suspicious bony lesions. Overlying soft tissues appear unremarkable. IMPRESSION: Cardiomegaly with increased interstitial markings, concerning for pulmonary edema. Reviewed by: Pedro Frausto MD on 09/02/2023 7:25 PM PDT Approved by: Pedro Frausto MD on 09/02/2023 7:25 PM PDT Station ID: [id number]
[2023-09-02 19:31] LABS: CLARITY,URINE CLEAR (CLEAR)
[2023-09-02 19:35] LABS: B. PARAPERTUSSIS- RESP PCR PAN NOT DETECTED; B. PERTUSSIS- RESP PCR PANEL NOT DETECTED; C. PNEUMONIAE- RESP PCR PANEL NOT DETECTED; CORONAVIRUS 229E-RESP PCR NOT DETECTED; CORONAVIRUS HKU1-RESP PCR NOT DETECTED; CORONAVIRUS NL63-RESP PCR NOT DETECTED; CORONAVIRUS OC43-RESP PCR NOT DETECTED; HUMAN METAPNEUMOVIRUS NOT DETECTED; INFLUENZA A- RESP PCR PANEL NOT DETECTED; INFLUENZA B - RESP PCR PANEL NOT DETECTED; M. PNEUMONIAE- RESP PCR PANEL NOT DETECTED; PARAINFLUENZA VIRUS 1 NOT DETECTED; PARAINFLUENZA VIRUS 2 NOT DETECTED; PARAINFLUENZA VIRUS 3 NOT DETECTED; PARAINFLUENZA VIRUS 4 NOT DETECTED; RHINOVIRUS/ENTEROVIRUS NOT DETECTED; RSV- RESP PCR PANEL NOT DETECTED; SARS-CoV-2 -RESP PCR PANEL NOT DETECTED
[2023-09-02 20:31] LABS: ETOH - ETHANOL < 10.0 mg/dL
[2023-09-02 20:32] LABS: AMPHETAMINE SCREEN,URINE NEGATIVE (NEGATIVE); BARBITURATE SCREEN,UR NEGATIVE (NEGATIVE); BENZODIAZEPINES SCREEN, URINE NEGATIVE (NEGATIVE); BUPRENORPHINE SCREEN, URINE NEGATIVE (NEGATIVE); COCAINE SCREEN URINE NEGATIVE (NEGATIVE); METHADONE SCREEN, URINE NEGATIVE (NEGATIVE); METHAMPHETAMINES SCREEN, URINE NEGATIVE (NEGATIVE); OPIATE SCREEN, URINE NEGATIVE (NEGATIVE); OXYCODONE SCREEN, URINE NEGATIVE (NEGATIVE); THC CANNABINOID SCREEN, URINE NEGATIVE (NEGATIVE); TRICYCLIC ANTIDEPRESSANT,URINE NEGATIVE (NEGATIVE)
[2023-09-02 20:42] LABS: TROPONIN I HIGH SENSITIVITY 29.3 ng/L (2.3-19.7)
--- NOTE | 2023-09-02 21:00 | CT Report ---
PROCEDURE: Head WO INDICATIONS: ams TECHNIQUE: Noncontrast 4.5 mm thick angled axial sections acquired from the foramen magnum to the vertex. For r adiation dose reduction, the following was used: automated exposure control, adjustment of mA and/or kV according to patient size. COMPARISON: CT head, 07/19/2023, 02/08/2023. FINDINGS: Image quality: Excellent. CSF spaces: Basal cisterns are patent. No extra-axial fluid collections. Ventricles are normal in size and shape. Brain: Encephalomalacia in the right temporal lobe. No midline shift. No intracranial masses or hem orrhage. Mild cerebral volume loss and periventricular white matter chronic small vessel ischemic ch anges. Rahman-white matter interface is normal. Skull and face: Right temporal craniotomy. Calvarium and visualized facial bones are intact, without suspicious lesions. Sinuses: Visualized sinuses and mastoids are clear. IMPRESSION: 1. No acute intracranial abnormality. 2. Right temporal craniotomy and encephalomalacia. Reviewed by: Roly Gamble MD on 09/02/2023 8:59 PM PDT Approved by: Roly Gamble MD on 09/02/2023 8:59 PM PDT Station ID: [id number]
[2023-09-02] MEDS: ACETAMINOPHEN 500 MG TABLET PO STA (21:46)
[2023-09-02] MEDS ORDERED: NITROGLYCERIN SL 0.4 MG TABLET SL PRN (22:36)
[2023-09-02] MEDS ORDERED: DOCUSATE SODIUM 250 MG CAPSULE PO PRN (22:36)
[2023-09-02] MEDS ORDERED: hydrALAZINE INJ 20 MG/ML VIAL IVP PRN (22:42)
[2023-09-02] MEDS ORDERED: SODIUM CHLORIDE FLUSH 0.9% 10 ML SYRINGE IVP PRN (22:46)
[2023-09-02] MEDS ORDERED: ONDANSETRON 4 MG/2 ML VIAL IVP PRN (22:46)
--- NOTE | 2023-09-02 23:01 | HISTORY & PHYSICAL EXAMINATION ---
Chief Complaint - Chief Complaint Chief Complaint: altered from baseline History of Present Illness - Admitted From Admitted From:: ED - History Obtained From Records Reviewed: EMR History obtained from: ED staff, daughter, and Exam Limitations: tele medicine - History of Present Illness HPI Comment/Other: 10M c known seizure disorder, hx of TBI s/p craniotomy, CAD c [place] and stent who was brought into the ED for confusion and odd behavior. Patient reportedly last seen normal last light. Patient at baseline is alert and oriented and can hold a regular conversation. This morning patient was not feeling well. He had complained of body aches and chest pain. There was report of malodorous urine however was not mentioned in the ED by family. No recent medication changes. No URI sxs. No diarrhea. No seizure activity. No travel. No sick contact. Patient developed confusion progressively throughout today and finally led to patient taking off his clothes. Patient himself has no recollection. Daughter mentions somewhat similar presentation when patient is extremely sad which he currently is not. No recent breakthrough seizures with last grand mal seizure more than a decade ago. History - Past Medical History Cardiovascular: reports: Coronary artery disease Neuro: reports: CVA : reports: Kidney stones - POLST Patient has POLST: No Meds/Allgy - Home Medications Home Medications: Ambulatory Orders Medication Instructions Recorded Confirmed Apixaban [Eliquis] 5 mg PO BID 07/19/23 09/02/23 Aspirin [[place] Aspirin] 81 mg PO DAILY 07/19/23 09/02/23 Atorvastatin [Lipitor] 20 mg PO QPM 07/19/23 09/02/23 Docusate Sodium [Dss] 250 mg PO DAILY PRN 07/19/23 09/02/23 Finasteride [Proscar] 5 mg PO DAILY 07/19/23 09/02/23 Furosemide [Lasix] 10 mg PO DAILY 07/19/23 09/02/23 Gabapentin [Neurontin] 600 mg PO BID 07/19/23 09/02/23 Isosorbide Mononitrate [Isosorbide 30 mg PO DAILY 07/19/23 09/02/23 Mononitrate ER] Losartan [Cozaar] 50 mg PO BID 07/19/23 09/02/23 Nitroglycerin [Nitrostat] 0.4 mg SL [id number] PRN 07/19/23 09/02/23 Pantoprazole [Protonix] 40 mg PO DAILY 07/19/23 09/02/23 Tamsulosin [Flomax] 1 cap PO DAILY 07/19/23 09/02/23 Trazodone HCl 100 mg PO HS 07/19/23 09/02/23 Venlafaxine HCl [Effexor Xr] 300 mg PO HS 07/19/23 09/02/23 carvediloL [Coreg] 12.5 mg PO BID 07/19/23 09/02/23 cloNIDine [Catapres] 0.1 mg PO ONCE PRN 07/19/23 09/02/23 diphenhydrAMINE [Benadryl] 25 mg PO HS 07/19/23 09/02/23 hydrALAZINE [Apresoline] 25 mg PO BID 07/19/23 09/02/23 lamoTRIgine [Lamictal] 150 mg PO BID 07/19/23 09/02/23 levETIRAcetam [Keppra] 100 mg PO BID 07/19/23 09/02/23 - Allergies Allergies/Adverse Reactions: Allergies Allergy/AdvReac Type Severity Reaction Status Date / Time No Known Drug Allergies Allergy Verified 09/02/23 18:42 Review of Systems - Other Findings Other Findings: limited 2/2 altered mentation. Patient did state no pain - no chest pain, no SOB, no palpitation Exam - Vital Signs Reviewed Vital Signs: Yes Vital Signs: Vital Signs x48h Temp Pulse Resp BP Pulse Ox 09/02/23 21:00 90 20 126/66 98 09/02/23 18:13 37.6 C 80 16 149/78 H 94 - Physical Exam General Appearance: positive: No acute distress Eyes Bilateral: positive: Normal inspection ENT: positive: ENT inspection nml Neck: positive: Nml inspection Skin: positive: Color nml Extremities: positive: Full ROM Neurologic/Psychiatric: positive: CN's nml (2-12), Mood/affect nml. negative: Facial droop, Slurred/abnml speech Conclusion/Plan - Problem List (1) Altered mental status, unspecified Conclusion/Plan: unclear etiology. r/o stroke. r/o infection. r/o seizure. followup MRI brain, trend troponin, restart home anticonvulsants and monitor on tele. hold medications that can trigger delirium. PT eval. case management for dispo planning. Qualifiers: Altered mental status type: unspecified Qualified Code(s): R41.82 - Altered mental status, unspecified (2) Hypertension Conclusion/Plan: managed. restart home antihypertensives. add coverage with hydralazine iv (3) Seizure Conclusion/Plan: no signs of breakthrough seizure. neuro checks. monitor on tele. continue home anticonvulsants. fall precaution. (4) CAD (coronary artery disease) Conclusion/Plan: patient mentioned chest pain that happened earlier in the day. no specifics provided. give hx of TBI, integrity of patient's hx is suspect. monitor c trop & BNP. Qualifiers: Coronary Disease-Associated Artery/Lesion type: [place] artery [place] vs. transplanted heart: [place] heart Associated angina: with stable angina Qualified Code(s): I25.118 - Atherosclerotic heart disease of [place] coronary artery with other forms of angina pectoris - Lab Results Fish Bones: 09/02/23 18:30 09/02/23 18:30 - Diagnostic Imaging Results Diagnostic Imaging Results: positive: Read independently - EKG Results EKG Interpreted Independently: No Core Measures - Anticipated LOS I expect patient to be DC'd or transferred within 96 hours.: Yes - Issues Hospital Issues and Management Plan: The patient consented to receive this telemedicine service, which I performed via live two-way audiovisual equipment. The patient is at ([facility]) and I am physically in [facility]. A nurse assisted me in the visit. - DVT/VTE - Prophylaxis VTE/DVT Device ordered at admit?: No Telemedicine Consult Details - Provider Location & Consult Time Telemedicine consultation conducted via videoconferencing?: Yes List names and roles of persons who participated in consult:: ED staff, daughter, Telemedicine provider location:: [facility] Time Telemedicine consult began:: 22:21 Time Telemedicine consult completed:: 23:21
[2023-09-03] MEDS: SODIUM CHLORIDE FLUSH 0.9% 10 ML SYRINGE IVP SCH (00:38)
[2023-09-03] MEDS: ACETAMINOPHEN 325 MG TABLET PO PRN (05:18)
[2023-09-03 06:00] LABS: PROCALCITONIN 0.14 ng/mL (<0.5)
[2023-09-03 06:06] LABS: THYROID STIMULATING HORMONE 1.33 uIU/mL (0.34-5.60)
[2023-09-03] MEDS: carvediloL 12.5 MG TABLET PO SCH (08:53)
[2023-09-03] MEDS: ISOSORBIDE MONONITRATE ER 30 MG TABLET PO SCH (08:53)
[2023-09-03] MEDS: APIXABAN 5 MG TABLET PO SCH (08:53)
[2023-09-03] MEDS: LOSARTAN 50 MG TABLET PO SCH (08:53)
[2023-09-03] MEDS: FUROSEMIDE 20 MG TABLET PO SCH (08:53)
[2023-09-03] MEDS: hydrALAZINE 25 MG TABLET PO SCH (08:54)
[2023-09-03] MEDS: TAMSULOSIN 0.4 MG CAPSULE PO SCH (08:54)
[2023-09-03] MEDS: ASPIRIN CHEW 81 MG TABLET PO SCH (08:54)
[2023-09-03] MEDS: FINASTERIDE 5 MG TABLET PO SCH (08:54)
[2023-09-03] MEDS: lamoTRIgine 100 MG TABLET PO SCH (08:54)
[2023-09-03] MEDS: PANTOPRAZOLE 40 MG TABLET PO SCH (08:54)
[2023-09-03] MEDS: levETIRAcetam 500 MG/5 ML UDC PO SCH (08:54)
[2023-09-03] MEDS ORDERED: levETIRAcetam 250 MG TABLET PO SCH (09:00)
[2023-09-03] MEDS ORDERED: GADOTERATE MEGLUMINE 10 MMOL/20 ML VIAL ONE (10:59)
[2023-09-03] MEDS ORDERED: GADOTERATE MEGLUMINE 5 MMOL/10 ML VIAL ONE (10:59)
[2023-09-03] MEDS: GADOTERATE MEGLUMINE 10 MMOL/20 ML VIAL IVP ONE (12:37)
[2023-09-03] MEDS: DIPHENOX/ATROPINE 2.5/0.025 MG TABLET PO PRN (13:33)
--- NOTE | 2023-09-03 13:57 | MRI Report ---
PROCEDURE: Brain W/WO INDICATIONS: altered CONTRAST: clariscan 21.0 ml TECHNIQUE: Noncontrast axial T1 spin echo, axial T2 fast spin echo, sagittal and axial FLAIR, coronal T2 fast sp in echo, axial gradient echo, axial diffusion and ADC through the brain. After the administration of contrast, axial and coronal T1 spin echo with fat saturation through the brain. COMPARISON: Head CT 07/19/2023 reviewed.. FINDINGS: Image quality: Mildly limited by persistent patient motion. CSF spaces: Basal cisterns are patent. No extra-axial fluid collections. Ventricles are normal in size and shape. Brain: No midline shift. No intracranial bleeds or masses. No abnormal intracranial enhancement. There is cerebral volume loss for age. There is periventricular white matter chronic small vessel is chemic change. The brainstem appears normal. Diffusion-weighted images demonstrate no acute ischemi c insults. No chronic ischemic insults. Normal intravascular flow voids are present. Skull and face: Calvarial marrow is normal in signal. Orbits appear normal. Sinuses: Sinuses and mastoids appear clear. IMPRESSION: Quality of visualization is somewhat limited by patient motion during image acquisition of the study is diagnostic for absence of mass, stroke or intracranial hemorrhage. Reviewed by: Eddie Sprague MD on 09/03/2023 1:55 PM PDT Approved by: Eddie Sprague MD on 09/03/2023 1:55 PM PDT Station ID: [id number]
--- NOTE | 2023-09-03 14:35 | Discharge Plan ---
Discharge Plan Problem Reviewed?: Yes Disposition: Home, Self Care Condition: Stable Prescriptions: Magnesium Oxide 400 mg PO DAILY #10 tablet Diet: Cardiac Activity Restrictions: Activity as Tolerated Shower Restrictions: No Driving Restrictions: Yes (no driving) Health Concerns: You were brought to the emergency room by ambulance after your family called them. Your and daughter reported that you were just not your usual self. You were not making much sense and you were taking off her close. When you came into the emergency room you were oriented only to your self. You did not know where you were, you did not know the day. When people your age do that we worry about infection, seizure, stroke, medication effect, or abnormalities of potassium/magnesium/calcium/sodium in your blood work. Your blood work was normal other than a mild anemia. You were not having a heart attack. Some of your blood work did show that you may have very mild dehydration. But it was nothing severe. Urinalysis, chest x-ray, and abdominal exam did not show that you had an infection. You do take medications that can be sedated such as Ef fexor, Keppra, Lamictal and gabapentin/trazodone. But your family stated that you were taking the same amount you always do. You do have a history of seizures so we were worried about a seizure or stroke. A CAT scan of your head was negative for stroke. We then did a more specialized study of an MRI that was negative as well. So our conclusion is that you may have had a transient ischemic attack or a TIA. It is when the blood vessel to your brain artery clamps down and mimics a stroke but then recovers quickly. Right now you are oriented to place, self, and you know that you are here with your in the room. You do not remember how you got here and you asked me to just rely on your and daughter to provide details. Plan of Treatment: 1. We feel you are stable enough for discharge. We ask you to see your primary care provider in follow-up. Unfortunately there is not much to change. If you did have a TIA you are already on blood pressure pill, cholesterol pill, and an aspirin. And you are already taking medications for seizures. 2. Your magnesium was a little bit low in the hospital. I will be sending you home with 1 pill a day. No Smoking: If you smoke, Please STOP! Call for help. Follow-up with: Michelle Victoria PA [Primary Care Provider] -
--- NOTE | 2023-09-03 14:54 | DISCHARGE SUMMARY ---
Discharge Summary Admit Date: 09/02/23 Discharge Date: 09/03/23 Discharging Provider: Edna Jane MD Primary Care Provider: Michelle Victoria MD Code Status: Attempt Resuscitation Condition at Discharge: Stable Discharge Disposition: 01 Home, Self Care - DIAGNOSES Discharge Diagnoses with Status of Each Condition: 1. Altered mental status, possible TIA versus unwitnessed seizure 2. Hypertension 3. History of seizure disorder 4. Coronary artery disease 5. 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 - HPI History of Present Illness: 10M c known seizure disorder, hx of TBI s/p craniotomy, CAD c TX and stent who was brought into the ED for confusion and odd behavior. Patient reportedly last seen normal last light. Patient at baseline is alert and oriented and can hold a regular conversation. This morning patient was not feeling well. He had complained of body aches and chest pain. There was report of malodorous urine however was not mentioned in the ED by family. No recent medication changes. No URI sxs. No diarrhea. No seizure activity. No travel. No sick contact. Patient developed confusion progressively throughout today and finally led to patient taking off his clothes. Patient himself has no recollection. Daughter mentions somewhat similar presentation when patient is extremely sad which he currently is not. No recent breakthrough seizures with last grand mal seizure more than a decade ago. - Past Medical History Cardiovascular: reports: Coronary artery disease Neuro: reports: CVA : reports: Kidney stones - CONSULTS | PROCEDURES Procedures: Chest x-ray with cardiomegaly and interstitial markings that were increased. Head CT with no acute intracranial abnormality, right temporal craniotomy and encephalomalacia are chronic and unchanged Brain MRI limited by patient motion and there is no mass, stroke or intracranial hemorrhage seen that is acute - HOSPITAL COURSE Hospital Course: Differential diagnosis of stroke, TIA, unwitnessed seizure, infection, drug eff ect all entertained. He was also evaluated for electrolyte abnormalities. The only thing we found was mild anemia of 13.5 g of hemoglobin. BUN of 24. Lactic acid 2.3. Negative troponins. Negative ammonia. Urinalysis was normal. Toxicology screen was normal. Chest x-ray without acute cardiopulmonary process. CT of the head without stroke or new changes. A follow-up MRI of head was done and that was negative as well. Patient was oriented x 1 when he was admitted. At the time of discharge he is oriented to person, place, but not situation. He has no idea how he got here and he tells me to just ask his daughter because "my daughter does everything". But he appears to be at [facility]. Workup discussed with his who is at the bedside. He is now discharged in stable condition.There is no change in his discharge medication. He is already on Eliquis, aspirin, Lipitor. This document was made in part using voice recognition software. While efforts are made to proofread this document, sound alike and grammatical errors may occur. - ALLERGIES Allergies/Adverse Reactions: Allergies Allergy/AdvReac Type Severity Reaction Status Date / Time No Known Drug Allergies Allergy Verified 09/02/23 18:42 - MEDICATIONS Home Medications: Ambulatory Orders Medication Instructions Recorded Confirmed Apixaban [Eliquis] 5 mg PO BID 07/19/23 09/02/23 Aspirin [Odon Aspirin] 81 mg PO DAILY 07/19/23 09/02/23 Atorvastatin [Lipitor] 20 mg PO QPM 07/19/23 09/02/23 Docusate Sodium [Dss] 250 mg PO DAILY PRN 07/19/23 09/02/23 Finasteride [Proscar] 5 mg PO DAILY 07/19/23 09/02/23 Furosemide [Lasix] 10 mg PO DAILY 07/19/23 09/02/23 Gabapentin [Neurontin] 600 mg PO BID 07/19/23 09/02/23 Isosorbide Mononitrate [Isosorbide 30 mg PO DAILY 07/19/23 09/02/23 Mononitrate ER] Losartan [Cozaar] 50 mg PO BID 07/19/23 09/02/23 Nitroglycerin [Nitrostat] 0.4 mg SL [id number] PRN 07/19/23 09/02/23 Pantoprazole [Protonix] 40 mg PO DAILY 07/19/23 09/02/23 Tamsulosin [Flomax] 1 cap PO DAILY 07/19/23 09/02/23 Trazodone HCl 100 mg PO HS 07/19/23 09/02/23 Venlafaxine HCl [Effexor Xr] 300 mg PO HS 07/19/23 09/02/23 carvediloL [Coreg] 12.5 mg PO BID 07/19/23 09/02/23 cloNIDine [Catapres] 0.1 mg PO ONCE PRN 07/19/23 09/02/23 diphenhydrAMINE [Benadryl] 25 mg PO HS 07/19/23 09/02/23 hydrALAZINE [Apresoline] 25 mg PO BID 07/19/23 09/02/23 lamoTRIgine [Lamictal] 150 mg PO BID 07/19/23 09/02/23 levETIRAcetam [Keppra] 100 mg PO BID 07/19/23 09/02/23 Magnesium Oxide 400 mg PO DAILY #10 tablet 09/03/23 - PHYSICAL EXAM AT DISCHARGE General Appearance: positive: No acute distress, Alert, Other (Elderly obese male, unshaven, low gravelly voice) Eyes Bilateral: positive: PERRL ENT: positive: No signs of dehydration Respiratory: positive: No respiratory distress. negative: Wheezes, Rales, Rhonchi Cardiovascular: positive: Regular rate & rhythm, Systolic murmur Abdomen: positive: Non-tender, No organomegaly, Nml bowel sounds, No distention, Other (Large protuberant pannus) Skin: positive: Warm, Dry Extremities: positive: Full ROM, No pedal edema Neurologic/Psychiatric: positive: CN's nml (2-12), Motor nml (Slow-moving. Able to answer questions but can get easily confused), Disoriented to time - LABS Result Diagrams: 09/02/23 18:30 09/02/23 18:30
[2023-09-03 15:26] VITALS: BP 154/97; O2SAT 95
[2023-09-03] MEDS ORDERED: MULTIVITAMIN W/MINERALS TABLET PO SCH (17:00)
[2023-09-03] MEDS ORDERED: VENLAFAXINE ER 75 MG CAPSULE PO SCH (21:00)
[2023-09-03] MEDS ORDERED: ATORVASTATIN 10 MG TABLET PO SCH (21:00)
[2023-09-04 05:12] LABS: RPR Non Reactive (Non Reactive)
== END 2023-09-03 16:30 | disposition home or self-care (01) ==
LOC: EDUNIT# → ED 18:10 → MS2 22:46
PROVIDERS: ADMIT Internal Medicine; ATTEND Specialist
DX: R41.82 Altered mental status, unspecified (principal); I10 Essential (primary) hypertension; G40.909 Epilepsy, unspecified, not intractable, without status epilepticus; R41.89 Other symptoms and signs involving cognitive functions and awareness; S06.9XAS Unspecified intracranial injury with loss of consciousness status unknown, sequela; X58.XXXS Exposure to other specified factors, sequela; I25.2 Old myocardial infarction; D64.9 Anemia, unspecified; I25.118 Atherosclerotic heart disease of native coronary artery with other forms of angina pectoris; R05.9 Cough, unspecified; R94.31 Abnormal electrocardiogram [ECG] [EKG]; R79.89 Other specified abnormal findings of blood chemistry; Z11.52 Encounter for screening for COVID-19; Z79.01 Long term (current) use of anticoagulants; Z79.82 Long term (current) use of aspirin; Z79.899 Other long term (current) drug therapy; Z86.73 Personal history of transient ischemic attack (TIA), and cerebral infarction without residual deficits; Z95.5 Presence of coronary angioplasty implant and graft
CPT/HCPCS: 36415; 51701; 70450; 70553; 71045; 80053; 80306; 81003; 82140; 82607; 82746; 83605; 83735; 83880; 84145; 84443; 84484; 85025; 86592; 87040; 87086; 87633; 93005; 99285; A9270; A9575; G0378; G0480; 81001; 82077

== ENCOUNTER 2023-10-04 13:02 | Outpatient (CLI) | payer MEDICARE, OTHER ==
[2023-10-04 19:46] LABS: BASOPHILS # (AUTO) 0.1 10^3/uL (0.0-0.1); BASOPHILS % (AUTO) 0.6 %; EOSINOPHILS # (AUTO) 0.1 10^3/uL (0.0-0.7); EOSINOPHILS % (AUTO) 1.2 %; HCT - HEMATOCRIT 40.4 % (42.0-52.0); HGB - HEMOGLOBIN 13.1 g/dL (14.0-18.0); LYMPHOCYTES # (AUTO) 2.1 10^3/uL (1.5-3.5); LYMPHOCYTES % (AUTO) 24.8 %; MEAN CORPUSCULAR HEMOGLOBIN 32.3 pg (27.0-31.0); MEAN CORPUSCULAR HGB CONC 32.4 g/dL (32.0-36.0); MEAN CORPUSCULAR VOLUME 99.8 fL (80.0-94.0); MEAN PLATELET VOLUME 9.8 fL (7.4-11.4); MONOCYTES # (AUTO) 0.6 10^3/uL (0.0-1.0); MONOCYTES % (AUTO) 7.1 %; NEUTROPHILS # (AUTO) 5.6 10^3/uL (1.5-6.6); NEUTROPHILS % (AUTO) 65.9 %; PLT - PLATELET COUNT 212 10^3/uL (130-450); RED BLOOD COUNT 4.05 10^6/uL (4.70-6.10); RED CELL DISTRIBUTION WIDTH 13.8 % (12.0-15.0); WHITE BLOOD COUNT 8.4 x10^3/uL (4.8-10.8)
[2023-10-04 19:50] LABS: MAGNESIUM 2.1 mg/dL (1.7-2.3)
[2023-10-04 19:56] LABS: ALBUMIN 3.7 g/dL (3.2-5.5); ALBUMIN/GLOBULIN RATIO 1.2 (1.0-2.2); BILIRUBIN,TOTAL 0.5 mg/dL (0.2-1.0); CALCIUM 9.3 mg/dL (8.5-10.3); CREATININE 1.2 mg/dL (0.6-1.3); TOTAL PROTEIN 6.7 g/dL (6.4-8.9)
[2023-10-04 20:10] LABS: FERRITIN 37.5 ng/mL (23.9-336.2)
== END 2023-10-04 13:03 | disposition home or self-care (01) ==
LOC: LAB.S 13:02
PROVIDERS: ATTEND Physician Assistant Medical
DX: R55 Syncope and collapse (principal); D50.9 Iron deficiency anemia, unspecified
CPT/HCPCS: 36415; 80053; 82728; 83735; 85025

== ENCOUNTER 2023-11-12 23:40 | Emergency (ER) | payer MEDICARE, OTHER ==
--- NOTE | 2023-11-13 00:34 | ED Physician Documentation ---
History of Present Illness - Stated complaint Stated Complaint: ABD PX - Chief complaint Chief Complaint: Abd Pain - History obtained from History obtained from: Patient, Family (spouse) - Additonal information Additional information: HPI from patient as well as patient's spouse (who is in ED at patient's bedside). Patient sustained a mechanical fall this morning at home when he went to sit in his wheelchair and the wheels were apparently not locked, causing the chair to roll back and patient to fall to the ground. No LOC, patient denies head injury, denies headache and denies neck pain. Baseline mental status per patient's . The chief concern is regarding a bruise on the right side of his abdomen; not clear as to what was struck to cause this bruise, but its appearance did coincide with this morning's fall. The is specifically concerned that it is appearing increasingly red and she is worried about infection. Patient does take blood-thinning medication. The patient and his are not certain which medication; thinks it might be Plavix. When I check patient's medication list from [facility] inpatient visit in August, they note Eliquis/apixaban; when I asked the if he is still taking this medication, she says that this does sound correct (that he is currently taking this medication). PD PAST MEDICAL HISTORY - Past Medical History Cardiovascular: Coronary artery disease Neuro: CVA : Kidney stones - Past Surgical History Past Surgical History: No - Present Medications Home Medications: Ambulatory Orders Medication Instructions Recorded Confirmed Apixaban [Eliquis] 5 mg PO BID 07/19/23 09/02/23 Aspirin [Wharton Aspirin] 81 mg PO DAILY 07/19/23 09/02/23 Atorvastatin [Lipitor] 20 mg PO QPM 07/19/23 09/02/23 Docusate Sodium [Dss] 250 mg PO DAILY PRN 07/19/23 09/02/23 Finasteride [Proscar] 5 mg PO DAILY 07/19/23 09/02/23 Furosemide [Lasix] 10 mg PO DAILY 07/19/23 09/02/23 Gabapentin [Neurontin] 600 mg PO BID 07/19/23 09/02/23 Isosorbide Mononitrate [Isosorbide 30 mg PO DAILY 07/19/23 09/02/23 Mononitrate ER] Losartan [Cozaar] 50 mg PO BID 07/19/23 09/02/23 Nitroglycerin [Nitrostat] 0.4 mg SL [id number] PRN 07/19/23 09/02/23 Pantoprazole [Protonix] 40 mg PO DAILY 07/19/23 09/02/23 Tamsulosin [Flomax] 1 cap PO DAILY 07/19/23 09/02/23 Trazodone HCl 100 mg PO HS 07/19/23 09/02/23 Venlafaxine HCl [Effexor Xr] 300 mg PO HS 07/19/23 09/02/23 carvediloL [Coreg] 12.5 mg PO BID 07/19/23 09/02/23 cloNIDine [Catapres] 0.1 mg PO ONCE PRN 07/19/23 09/02/23 diphenhydrAMINE [Benadryl] 25 mg PO HS 07/19/23 09/02/23 hydrALAZINE [Apresoline] 25 mg PO BID 07/19/23 09/02/23 lamoTRIgine [Lamictal] 150 mg PO BID 07/19/23 09/02/23 levETIRAcetam [Keppra] 100 mg PO BID 07/19/23 09/02/23 Magnesium Oxide 400 mg PO DAILY #10 tablet 09/03/23 - Allergies Allergies/Adverse Reactions: Allergies Allergy/AdvReac Type Severity Reaction Status Date / Time No Known Drug Allergies Allergy Verified 11/12/23 23:48 - Social History Does the pt smoke?: No Smoking Status: Never smoker Does the pt drink ETOH?: No Does the pt have substance abuse?: No - Immunizations Immunizations are current?: Yes - POLST Patient has POLST: No PD ED PE NORMAL - Vitals Vital signs reviewed: Yes - General General: Alert and oriented X 3, No acute distress, Well developed/nourished - Cardiac Cardiac: RRR - Respiratory Respiratory: No respiratory distress, Clear bilaterally - Abdomen Abdomen: Soft PD ED PE EXPANDED - Abdomen Abdomen Visual: 1 - bruising (flat ecchymosis without erythema nor abnormal warmth/heat to t ouch) 2 - tenderness (TTP without rebound) Results - Vitals Vitals: Vital Signs - 24 hr 11/12/23 11/13/23 23:50 02:25 Temperature 37.1 C Heart Rate 77 84 Respiratory 18 20 Rate Blood Pressure 162/86 H 174/83 H O2 Saturation 95 98 Oxygen O2 Source Room air - Labs Labs: Laboratory Tests 11/13/23 11/13/23 01:02 01:02 WBC 8.9 RBC 3.92 L Hgb 12.3 L Hct 38.0 L MCV 96.9 H MCH 31.4 H MCHC 32.4 RDW 13.2 Plt Count 175 MPV 9.2 Neut # (Auto) 5.7 Lymph # (Auto) 2.3 Coles # (Auto) 0.7 Eos # (Auto) 0.1 Baso # (Auto) 0.1 Absolute Nucleated RBC 0.00 Nucleated RBC % 0.0 Sodium 143 Potassium 4.1 Chloride 109 Carbon Dioxide 28 Anion Gap 6.0 BUN 24 H Creatinine 1.4 H Estimated GFR (MDRD) 49 L Glucose 118 H Calcium 9.2 Total Bilirubin 0.4 AST 13 ALT 16 Alkaline Phosphatase 75 Total Protein 6.3 L Albumin 3.5 Globulin 2.8 Albumin/Globulin Ratio 1.3 Lipase 27 - Rads (name of study) CT A/P with IV contrast Relevant Findings:: Prelim report reviewed, EMP independent interpretation of test (I reviewed these images and my interpretation is no acute abdominopelvic abnormality including no evidence of intraabdominal trauma or bleeding), See rad report PD Medical Decision Making - ED course Complexity details: reviewed results, re-evaluated patient, considered differential, d/w patient, d/w family ED course: No concerning findings on CBC, ER abdominal panel. Mildly abnormal kidney function tests including GFR; these results are not significantly off from his baseline (using previous results in [employer] for comparative purposes). The ecchymosis on exam appears to be a moderate-sized but otherwise uncomplicated abdominal wall contusion/bruise. However, he does have mild/moderate TTP of the right upper quadrant and right periumbilical regions. Given that he appears to be on apixaban, CT A/P was undertaken. Fortunately, I do not see any evidence of acute abdominal pelvic abnormality on this study including no evidence of acute injury nor bleeding. Results discussed with patient and his spouse, return precautions reviewed. Prior to discharge, he is given 0.2 mg clonidine p.o. for elevated blood pressure during ED stay. Initial blood pressures were in the 170s systolic but as high as 191/115 prior to discharge (and he is given the clonidine after this particular reading). Departure - Departure Disposition: 01 Home, Self Care Clinical Impression: Blunt injury of abdomen Qualifiers: Encounter type: initial encounter Qualified Code(s): S39.91XA - Unspecified injury of abdomen, initial encounter Condition: Good Instructions: ED Abdominal Injury Blunt Benign Comments: There were no concerning findings on tonight's blood tests nor on the CT scan of your abdomen. The bruise on your abdominal wall does not appear extensive nor infected. Because you are on a blood-thinning medication, it might take a few w eeks to resolve. As we discussed, it would be reasonable to apply a topical antibiotic (such as bacitracin) twice per day for 5-7 days to the abraded area of injury, but no oral antibiotic is needed at this time.
[2023-11-13 01:04] LABS: BASOPHILS # (AUTO) 0.1 10^3/uL (0.0-0.1); BASOPHILS % (AUTO) 0.6 %; EOSINOPHILS # (AUTO) 0.1 10^3/uL (0.0-0.7); EOSINOPHILS % (AUTO) 0.9 %; HGB - HEMOGLOBIN 12.3 g/dL (14.0-18.0); LYMPHOCYTES # (AUTO) 2.3 10^3/uL (1.5-3.5); LYMPHOCYTES % (AUTO) 25.5 %; MEAN CORPUSCULAR HEMOGLOBIN 31.4 pg (27.0-31.0); MEAN CORPUSCULAR HGB CONC 32.4 g/dL (32.0-36.0); MEAN CORPUSCULAR VOLUME 96.9 fL (80.0-94.0); MEAN PLATELET VOLUME 9.2 fL (7.4-11.4); MONOCYTES # (AUTO) 0.7 10^3/uL (0.0-1.0); MONOCYTES % (AUTO) 8.4 %; NEUTROPHILS # (AUTO) 5.7 10^3/uL (1.5-6.6); NEUTROPHILS % (AUTO) 64.4 %; PLT - PLATELET COUNT 175 10^3/uL (130-450); RED BLOOD COUNT 3.92 10^6/uL (4.70-6.10); RED CELL DISTRIBUTION WIDTH 13.2 % (12.0-15.0); WHITE BLOOD COUNT 8.9 x10^3/uL (4.8-10.8)
[2023-11-13 01:23] LABS: ALBUMIN 3.5 g/dL (3.2-5.5); ALBUMIN/GLOBULIN RATIO 1.3 (1.0-2.2); BILIRUBIN,TOTAL 0.4 mg/dL (0.2-1.0); CALCIUM 9.2 mg/dL (8.5-10.3); CREATININE 1.4 mg/dL (0.6-1.3); POTASSIUM 4.1 mmol/L (3.5-4.5); TOTAL PROTEIN 6.3 g/dL (6.4-8.9)
[2023-11-13] MEDS ORDERED: iohexoL-300 100 ML VIAL ONE (01:28)
[2023-11-13] MEDS: iohexoL-300 100 ML VIAL IVP ONE (02:27)
[2023-11-13 02:34] VITALS: BP 174/83; O2SAT 98
[2023-11-13] MEDS: cloNIDine 0.1 MG TABLET PO STA (02:52)
--- NOTE | 2023-11-13 07:59 | CT Report ---
PROCEDURE: Abdomen/Pelvis W INDICATIONS: fall, blunt abd. injury, right-sided TTP CONTRAST: 100ml [id number] TECHNIQUE: After the administration of intravenous contrast, a CT scan of the abdomen and pelvis was performed. Images were recorded and evaluated at appropriate window settings. Reformats: coronal and sagittal. F or radiation dose reduction, the following was used: automated exposure control, adjustment of mA and /or kV according to patient size. COMPARISON: 06/24/2023 FINDINGS: Image quality: Diagnostic Lower chest: Bibasilar atelectasis/scarring. Liver: Possible hepatic steatosis Gallbladder and biliary system: Cholelithiasis. No pathologic biliary dilation Pancreas: Mild parenchymal atrophy. No ductal dilation Spleen: Nonenlarged Adrenals: No adrenal nodules Kidneys: No hydronephrosis or solid renal mass No solid organ laceration or capsular hematoma identified. Vessels and lymph nodes: The main portal vein is patent. No abdominal aortic aneurysm. No pathologic lymph nodes by size criteria. Bowel and peritoneum: No evidence of small bowel obstruction. No hemoperitoneum. There are colonic di verticula. No abscess. Body wall: Postsurgical changes. Small fat-containing umbilical hernia. Pelvis: Bladder is unremarkable. Small fat-containing inguinal hernias Bones: Degenerative changes. Similar bony deformity of the right posterior 10th rib compared to 2023. There is a very questionable nondisplaced fracture of the right eighth rib anteriorly. Adam elate with point tenderness. IMPRESSION: No significant traumatic abnormality or displaced fracture identified. There is a questionable nondisplaced fracture of the right eighth rib anteriorly. There is also a lik ian old deformity of the posterior right 10th rib. This was seen in June 2023. Other findings as above. No solid organ laceration or hemoperitoneum. Called to Dr. May Reviewed by: Emmanuel Pearl MD on 11/13/2023 7:57 AM PDT Approved by: Emmanuel Pearl MD on 11/13/2023 7:57 AM PDT Station ID: [id number]
== END 2023-11-13 03:22 | disposition home or self-care (01) ==
LOC: ED 23:40
DX: S30.1XXA Contusion of abdominal wall, initial encounter (principal); W05.0XXA Fall from non-moving wheelchair, initial encounter; Y92.009 Unspecified place in unspecified non-institutional (private) residence as the place of occurrence of the external cause; Z79.01 Long term (current) use of anticoagulants; R94.4 Abnormal results of kidney function studies; R03.0 Elevated blood-pressure reading, without diagnosis of hypertension; R93.7 Abnormal findings on diagnostic imaging of other parts of musculoskeletal system
CPT/HCPCS: 36415; 74177; 80053; 83690; 85025; 99284; A9270; Q9967

== ENCOUNTER 2024-10-19 23:18 | Inpatient (IN) ==
--- OUTSIDE RECORDS SUMMARY | 2024-10-19 23:38 | EXTERNAL MEDICAL SUMMARY RPT | Continuity of Care Document ---
Author Organization [place] Address [address] [place] [id number] Phone Problems date description facility 2024-08-08 12:55 Hypotension, unspecified [facility] 2024-08-08 12:57 Hypotension, unspecified [facility] 2024-08-11 13:24 Pain in left knee [facility] 2024-09-29 15:30 Urinary tract infection, site n ot specified [facility] 2024-10-02 07:05 Urinary tract infection, site n ot specified [facility] 2024-10-02 10:08 Hypotension, unspecified [facility] 2024-10-02 10:08 Urinary tract infection, site n ot specified [facility] 2024-10-02 10:08 Headache, unspecified [facility] 2024-10-02 10:08 Weakness [facility] 2024-10-06 07:15 Encounter for observ ation for other suspected diseases and conditions ruled out [facility] 2024-10-09 12:49 Hypotension, unspecified [facility] Results/Labs test date facility value unit notes Result panel 1 NUCLEATED RED BLOOD CELLS AUTO 2024-09-29 12:48 [facility] 0.0 /100wbc (missing) BASOPHILS # (AUTO) 2024-09-29 12:48 [facility] 0.0 10 3/ul (missing) NRBC ABSOLUTE COUNT (AUTO) 2024-09-29 12:48 [facility] 0.00 x10 3/ul (missing) EOSINOPHILS # (AUTO) 2024-09-29 12:48 [facility] 0.1 10 3/ul (missing) BILIRUBIN,TOTAL 2024-09-29 12:48 [facility] 0.5 mg /dl As of November 2022 testing method has changed, this may include reference ranges. MONOCYTES # (AUTO) 2024-09-29 12:48 [facility] 0.8 10 3/ul (missing) ALBUMIN/GLOBULIN RATIO 2024-09-29 12:48 [facility] 1.3 (missing) (missing) [facility]IN[facility]24-09-29 [facility] As of November 2022 testing method has changed, this may include reference ranges. LACTIC ACID, VENOUS 2024-09-29 12[facility] 1.[facility] mmol/l N As of November 2022 testing method has changed, this may include reference ranges. WHITE BLOOD COUNT 2024-09-29 12:48 [facility] 10.0 x10 3/ul (missing) GLUCOSE 2024-09-29 12:48 [facility] 104 mg/dl As of November 2022 testing method has changed, this may include reference ranges. CHLORIDE 2024-09-29 12:48 [facility] 108 mmol/l As of November 2022 testing method has changed, this may include reference ranges. AST ASPARTATE AMINOTRANSFERASE 2024-09-29 12:48 [facility] 12 iu/l As of November 2022 testing method has changed, this may include reference ranges. ALT ALANINE AMINOTRANSFERASE 2024-09-29 12:48 [facility] 12 iu/l As of November 2022 testing method has changed, this may include reference ranges. HGB - HEMOGLOBIN 2024-09-29 12:48 [facility] 12.9 g /dl (missing) RED CELL DISTRIBUTION WIDTH 2024-09-29 12:48 [facility] 13.2 % (missing) SODIUM 2024-09-29 12:48 [facility] 142 mmol/l (missing) PLT - PLATELET COUNT 2024-09-29 12:48 [facility] 186 10 3/ul (missing) LYMPHOCYTES # (AUTO) 2024-09-29 12:48 [facility] 2.4 10 3/ul (missing) GLOBULIN 2024-09-29 12:48 [facility] 2.8 g/dl (missing) BUN - BLOOD UREA NITROGEN 2024-09-29 12:48 [facility] 21 mg/dl As of Nov testing method has changed, this may include reference ranges. VBG HCO3 2024-09-29 12:48 [facility] 28.5 mmol/l (missing) CARBON DIOXIDE - CO2 2024-09-29 12:48 [facility] 29 mmol/l As of November 2022 testing method has changed, this may include reference ranges. VBG TOTAL CO2 2024-09-29 12:48 [facility] 29.9 mmol /l (missing) VBG BASE EXCESS 2024-09-29 12:48 [facility] 3.0 mm ol/l (missing) ALBUMIN 2024-09-29 12:48 [facility] 3.6 g/dl As of November 2022 testing method has changed, this may include reference ranges. MEAN CORPUSCULAR HEMOGLOBIN 2024-09-29 12:48 [facility] 32.1 pg (missing) MEAN CORPUSCULAR HGB CONC 2024-09-29 12:48 [facility] 32.6 g/dl (missing) VBG PO2 2024-09-29 12:48 [facility] 37.7 mmhg (missing) HCT - HEMATOCRIT 2024-09-29 12:48 [facility] 39.6 % (missing) RED BLOOD COUNT 2024-09-29 12:48 [facility] 4.02 10 6/ul (missing) POTASSIUM 2024-09-29 12:48 [facility] 4.1 mmol/l As of November 2022 testing method has changed, this may include reference ranges. VBG PCO2 2024-09-29 12:48 [facility] 48.2 mmhg (missing) ANION GAP 2024-09-29 12:48 [facility] 5.0 (missing ) (missing) GFR - MDRD 2024-09-29 12[facility]48 [facility] (missin g) Social History date description facility
[2024-10-19 23:57] LABS: BASOPHILS % (AUTO) 0.3 %; EOSINOPHILS % (AUTO) 0.3 %; HGB - HEMOGLOBIN 13.3 g/dL (14.0-18.0); LYMPHOCYTES # (AUTO) 1.3 10^3/uL (1.5-3.5); LYMPHOCYTES % (AUTO) 8.4 %; MEAN CORPUSCULAR HEMOGLOBIN 31.7 pg (27.0-31.0); MEAN CORPUSCULAR HGB CONC 31.7 g/dL (32.0-36.0); MEAN CORPUSCULAR VOLUME 100.2 fL (80.0-94.0); MEAN PLATELET VOLUME 9.6 fL (7.4-11.4); MONOCYTES # (AUTO) 0.9 10^3/uL (0.0-1.0); MONOCYTES % (AUTO) 5.6 %; NEUTROPHILS # (AUTO) 13.1 10^3/uL (1.5-6.6); NEUTROPHILS % (AUTO) 85.1 %; PLT - PLATELET COUNT 177 10^3/uL (130-450); RED BLOOD COUNT 4.19 10^6/uL (4.70-6.10); RED CELL DISTRIBUTION WIDTH 13.5 % (12.0-15.0); WHITE BLOOD COUNT 15.4 x10^3/uL (4.8-10.8)
[2024-10-20] MEDS: ACETAMINOPHEN 325 MG TABLET PO STA ×2 (00:01)
--- NOTE | 2024-10-20 00:06 | XRAY Report ---
PROCEDURE: XR Chest 1V INDICATIONS: Sepsis TECHNIQUE: One view of the chest was acquired. COMPARISON: 09/29/2024 FINDINGS: Surgical changes and devices: Sternotomy. Lungs and pleura: Peribronchial cuffing with increased interstitial markings. No effusions or pneumothorax. Mediastinum: Cardiomegaly. Normal contour otherwise. Bones and chest wall: No suspicious bony lesions. Overlying soft tissues appear unremarkable. IMPRESSION: Peribronchial cuffing with increased interstitial markings, suggestive of mild to moderate pulmonary edema. Reviewed by: Malvin Tripathi MD on 10/20/2024 12:05 AM PDT Approved by: Malvin Tripathi MD on 10/20/2024 12:05 AM PDT Station ID: [id number]
[2024-10-20] MEDS: SODIUM CHLORIDE 0.9% 500 ML IV ONE (00:11)
--- NOTE | 2024-10-20 00:19 | ED Physician Documentation ---
History of Present Illness Stated complaint Stated Complaint: LETHARGIC, CONFUSED Chief complaint Chief Complaint: Neuro History obtained from History obtained from: Patient Additonal information Additional information: 84yM with pmh mthfr gene (hypercoagulable), uti, seizure disorder, chf, p/w fever and confusion today. patient has had episodes of delirium before but is normally aoX3. son in law denies patient coughing , vomiting, or reporting pain. further history limited by patient confusion. Meds/Allgy Home Medications Ambulatory Orders Medication Instructions Recorded Confirmed apixaban 5 mg tablet (Eliquis) 5 mg PO BID 07/19/23 atorvastatin 20 mg tablet 20 mg PO QPM 07/19/23 finasteride 5 mg tablet 5 mg PO DAILY 07/19/2307/27 gabapentin 600 mg tablet 300 mg PO BID 07/19/2307/27 (Neurontin) isosorbide mononitrate 30 mg 30 mg PO DAILY 07/19/23 0 07/27/24 tablet,extended release 24 hr nitroglycerin 0.4 mg sublingual 0.4 mg sublingual Q5MI NX3 PRN 07/19/23 07/27/24 tablet Chest Pain pantoprazole 40 mg tablet,delayed 40 mg PO DAILY 07/1907/27/24 release trazodone 100 mg tablet 100 mg PO HS 07/19/23 ascorbic acid (vitamin C) 1,000 mg 1 g PO QDAY 07/27/24 capsule cholecalciferol (vitamin D3) 25 25 mcg PO BID 03/16/24 07/27/24 mcg (1,000 unit) capsule levetiracetam 500 mg tablet 500 mg PO BID 03/16/2411/15 mecobalamin (vitamin B12) 1,000 2,000 mcg PO QDAY 02/2207/27/24 mcg chewable tablet tamsulosin 0.4 mg capsule 0.4 mg PO BID 03/16/2407/27 venlafaxine 75 mg tablet 225 mg PO QDAY 03/16/2411/15 vitamin E (dl, acetate) 180 mg 180 mg PO QDAY 03/16/24 07/27/24 (400 unit) capsule carvedilol 12.5 mg tablet 12.5 mg PO BID 05/01/2411/15 hydralazine 50 mg tablet 50 mg PO BID 05/01/24 furosemide 20 mg tablet 10 mg PO QAM 07/27/24 lamotrigine 150 mg tablet 150 mg PO BID 07/27/2407/27 losartan 100 mg tablet 100 mg PO Q OTHER DAY 07/27/24 sulfamethoxazole 800 1 tab PO BID #20 tabs mg-trimethoprim 160 mg tablet (Bactrim DS) Allergies Allergies Allergy/AdvReac Type Severity Reaction Status Date / Time No Known Drug Allergies Allergy Verified 10/19/24 23:30 [facility] Active Problems All Active Problems (Updated 10/20/24 @ 00:19 by Lidia Henry MD) Sepsis (Acute) Encephalopathy (Acute) Urinary tract infection (Acute) Hypotension (Acute) Medicare annual wellness visit, subsequent (Acute) Episode of shaking (Acute) Left shoulder pain (Acute) Hypertension (Acute 04/08/23) Seizure disorder (Acute 04/08/23) Personal history of traumatic brain injury (Acute 04/08/23) Knee pain, right (Acute 04/08/23) Knee pain, left (Acute 04/08/23) Congestive heart failure (CHF) (Chronic 04/08/23) Medical History Medical History Dementia following traumatic brain injury Syncope and collapse (07/29/23) Sciatica, right side (04/08/23) Obstructive sleep apnea (04/08/23) refuses CPAP Insomnia (04/08/23) Hyperlipidemia (04/08/23) History of ST elevation myocardial infarction (STEMI) (04/08/23) Hx of deep venous thrombosis (04/08/23) GERD (gastroesophageal reflux disease) (04/08/23) Clotting disorder (04/08/23) BPH with lower urinary tract symptoms without urinary obstruction (04/08/23) Lumbar back pain (04/08/23) Anemia, iron deficiency (09/08/23) Surgical History Surgical History Urethral stricture 2 procedures to correct S/P IVC filter IVCF placed and removed in 2020 PEG (percutaneous endoscopic gastrostomy) status 2019 PEG Tube placed 2019 PEG tube removed Hx of heart artery stent 2018 cardiac stents x 2 History of sternectomy 2011? 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 History of surgery 1994 Right frontal lobotomy History of brain surgery 1987 after TBI Family History Family History Father Colon cancer Social History Social History Smoking Status: Never smoker Do you dip or chew tobacco?: No Do you vape?: No Living arrangement: At home Living Condition: With family Relationship: Physical Activity: Chairfast Level: Dependent History of Abuse: No ETOH Use: None Substance Use: denies use Are you sexually active?: No POLST Patient has POLST: No POLST Status: Full Code Exam Exam Vital Signs: Vital Signs x48h Temp Pulse Resp BP Pulse Ox 10/19/24 23:23 38.0 C H 89 19 164/88 H 96 Constitutional normal general appearance, no apparent distress and average body habitus elderly appearing HENMT normocephalic, head/scalp atraumatic and oropharynx normal Eyes PERRL and EOMs intact bilaterally Neck/C-Spine visual inspection normal Respiratory normal respiratory effort coarse bilateral breath sounds Cardiovascular normal heart rate noted and regular rhythm noted Gastrointestinal abdomen normal to inspection, abdomen soft to palpation and nontender to palpation Genitourinary no CVA tenderness Back/Pelvis spine normal to inspection Extremities normal to inspection Psychiatry AOX1 Skin skin color normal and no rash Results Vitals Vitals: Vital Signs - 24 hr 10/19/24 23:23 10/20/24 00:00 10/20/24 00:01 Temperature 38.0 C H Temperature Source Skin Pulse Rate 89 Respiratory Rate 19 Blood Pressure 164/88 H O2 Saturation 96 O2 Source Room air Pain Intensity 7 0 0 10/20/24 00:29 Temperature Temperature Source Pulse Rate Respiratory Rate Blood Pressure O2 Saturation O2 Source Pain Intensity 0 Oxygen O2 Source Room air Labs Labs: Laboratory Tests 10/19/24 23:45 WBC 15.4 H RBC 4.19 L Hgb 13.3 L Hct 42.0 MCV 100.2 H MCH 31.7 H MCHC 31.7 L RDW 13.5 Plt Count 177 MPV 9.6 Neut # (Auto) 13.1 H Lymph # (Auto) 1.3 L [place] # (Auto) 0.9 Eos # (Auto) 0.0 Baso # (Auto) 0.0 Absolute Nucleated RBC 0.00 Nucleated RBC % 0.0 PD Medical Decision Making ED course ED course: 84yM presents with acute confusion and fever of unknown origin. Febrile with leukocytosis of 15.4, therefore patient meets SIRS criteria. CXR with BL infiltrates concerning for pulmonary edema with possible underlying pneumonia. plan to admit for sepsis and encephalopathy. Discharge Plan Discharge Patient Disposition: ED Place in Observation Condition: Fair Clinical Impression: Encephalopathy, Sepsis Prescriptions: No Action gabapentin [Neurontin] 600 MG tablet 300 mg PO BID atorvastatin 20 MG tablet 20 mg PO QPM isosorbide mononitrate 30 MG tablet extended release 24 hr 30 mg PO DAILY trazodone 100 MG tablet 100 mg PO HS pantoprazole 40 MG tablet,delayed release (DR/EC) 40 mg PO DAILY nitroglycerin 0.4 MG tablet, sublingual 0.4 mg sublingual [id number] PRN (Reason: Chest Pain) finasteride 5 MG tablet 5 mg PO DAILY apixaban [Eliquis] 5 MG tablet 5 mg PO BID tamsulosin 0.4 mg capsule 0.4 mg PO BID carvedilol 12.5 mg tablet 12.5 mg PO BID Rx Instructions: must administer with a meal/food hydralazine 50 mg tablet 50 mg PO BID Rx Instructions: Take 2 tablet by mouth twice a day furosemide 20 mg tablet 10 mg PO QAM sulfamethoxazole-trimethoprim [Bactrim DS] 800-160 mg tablet 1 tab PO BID Qty: 20 0RF levetiracetam 500 mg tablet 500 mg PO BID venlafaxine 75 mg tablet 225 mg PO QDAY mecobalamin (vitamin B12) 1,000 mcg tablet,chewable 2,000 mcg PO QDAY ascorbic acid (vitamin C) 1,000 mg capsule 1 g PO QDAY vitamin E (dl, acetate) 180 mg (400 unit) capsule 180 mg PO QDAY cholecalciferol (vitamin D3) 25 mcg (1,000 unit) capsule 25 mcg PO BID lamotrigine 150 mg tablet 150 mg PO BID losartan 100 mg tablet 100 mg PO Q OTHER DAY Print Language: French Stand Alone Forms: PCP List
[2024-10-20] MEDS: ACETAMINOPHEN 650 MG SUPP PR STA (00:29)
[2024-10-20] MEDS ORDERED: cefTRIAXone 1 GM VIAL ONE (00:31)
[2024-10-20 00:36] LABS: BILIRUBIN,URINE NEGATIVE (NEGATIVE); GLUCOSE, URINE (UA) NEGATIVE (NEGATIVE); KETONES,URINE (UA) NEGATIVE (NEGATIVE); LEUKOCYTE ESTERASE, URINE NEGATIVE (NEGATIVE); NITRITE,URINE NEGATIVE (NEGATIVE); OCCULT BLOOD,URINE NEGATIVE (NEGATIVE); PH,URINE 7.5 PH (5.0-7.5); PROTEIN,URINE NEGATIVE (NEGATIVE); UROBILINOGEN,URINE 1 (NORMAL) E.U./dL (NORMAL)
[2024-10-20 00:37] LABS: ALBUMIN 3.9 g/dL (3.2-5.5); BILIRUBIN,TOTAL 0.8 mg/dL (0.2-1.0); CALCIUM 9.2 mg/dL (8.5-10.3)
[2024-10-20 00:38] LABS: ALBUMIN/GLOBULIN RATIO 1.3 (1.0-2.2); CREATININE 1.2 mg/dL (0.6-1.3)
[2024-10-20 00:38] LABS: LACTIC ACID, VENOUS 2.2 mmol/L (0.5-2.2)
[2024-10-20] MEDS ORDERED: ACETAMINOPHEN 325 MG TABLET PO PRN (00:39)
[2024-10-20] MEDS ORDERED: ONDANSETRON 4 MG/2 ML VIAL IVP PRN (00:39)
[2024-10-20] MEDS ORDERED: SODIUM CHLORIDE FLUSH 0.9% 10 ML SYRINGE IVP PRN (00:39)
[2024-10-20] MEDS ORDERED: MORPHINE 2 MG/ML CARPUJECT IVP PRN (00:39)
[2024-10-20] MEDS: cefTRIAXone 1 GM in SODIUM CHLORIDE 0.9% MINIBAG 100 ML IV STA (00:44)
[2024-10-20] MEDS: AZITHROMYCIN INJ 500 MG in SODIUM CHLORIDE 0.9% 250 ML IV STA (00:45)
[2024-10-20 00:46] LABS: BACTERIA,URINE None Seen /HPF (None Seen); CLARITY,URINE CLEAR (CLEAR); RBC,URINE 0-5 /HPF (0-5); SQUAMOUS EPITHELIAL CELL,UR RARE Squamous (<= Few)
--- NOTE | 2024-10-20 00:57 | HISTORY & PHYSICAL EXAMINATION ---
Chief Complaint Chief Complaint Chief Complaint: ams, sob History of Present Illness History Obtained From History obtained from: patient, chart, family at bedside Exam Limitations: pt confused History of Present Illness HPI Comment/Other: This is an 84 yo gentleman with pmhx of htn, hld, cad, mthfr def on AC,, seizure disorder who presented with fever, confusion/ams and unwell feeling. Pt brought in by family and was noted with coughing and had emesis. Pt denied chest pain, LH or dizziness, no headache. Labs showed significant for wbc 15.4k, CXR showed peribronchial cuffing with increased interstitial markings suggestive of pulmonary edema. Per son-in-law at bedside pt was doing well early in the am and noted later in the day pt not himself and then in the evening pt was completel altered, unable to recognize family members, was delusional and paranoid and given this EMS was called. Review of Systems per hpi PFS Active Problems All Active Problems (Updated 10/20/24 @ 01:10 by Lucius Mai DO) Pneumonia (Acute) Sepsis (Acute) Encephalopathy (Acute) Urinary tract infection (Acute) Hypotension (Acute) Medicare annual wellness visit, subsequent (Acute) Episode of shaking (Acute) Left shoulder pain (Acute) Hypertension (Acute 04/08/23) Seizure disorder (Acute 04/08/23) Personal history of traumatic brain injury (Acute 04/08/23) Knee pain, right (Acute 04/08/23) Knee pain, left (Acute 04/08/23) Congestive heart failure (CHF) (Chronic 04/08/23) Medical History Medical History Dementia following traumatic brain injury Syncope and collapse (07/29/23) Sciatica, right side (04/08/23) Obstructive sleep apnea (04/08/23) refuses CPAP Insomnia (04/08/23) Hyperlipidemia (04/08/23) History of ST elevation myocardial infarction (STEMI) (04/08/23) Hx of deep venous thrombosis (04/08/23) GERD (gastroesophageal reflux disease) (04/08/23) Clotting disorder (04/08/23) BPH with lower urinary tract symptoms without urinary obstruction (04/08/23) Lumbar back pain (04/08/23) Anemia, iron deficiency (09/08/23) Surgical History Surgical History Urethral stricture 2 procedures to correct S/P IVC filter IVCF placed and removed in 2020 PEG (percutaneous endoscopic gastrostomy) status 2019 PEG Tube placed 2019 PEG tube removed Hx of heart artery stent 2018 cardiac stents x 2 History of sternectomy 2011? 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 History of surgery 1994 Right frontal lobotomy History of brain surgery 1987 after TBI Family History Family History Father Colon cancer Social History Social History Smoking Status: Never smoker Do you dip or chew tobacco?: No Do you vape?: No Living arrangement: At home Living Condition: With family Relationship: Physical Activity: Chairfast Level: Dependent History of Abuse: No ETOH Use: None Substance Use: denies use Are you sexually active?: No POLST Patient has POLST: No POLST Status: Full Code Meds/Allgy Home Medications Ambulatory Orders Medication Instructions Recorded Confirmed apixaban 5 mg tablet (Eliquis) 5 mg PO BID 07/19/23 atorvastatin 20 mg tablet 20 mg PO QPM 07/19/23 finasteride 5 mg tablet 5 mg PO DAILY 07/19/2307/27 gabapentin 600 mg tablet 300 mg PO BID 07/19/2307/27 (Neurontin) isosorbide mononitrate 30 mg 30 mg PO DAILY 07/19/23 0 07/27/24 tablet,extended release 24 hr nitroglycerin 0.4 mg sublingual 0.4 mg sublingual Q5MI NX3 PRN 07/19/23 07/27/24 tablet Chest Pain pantoprazole 40 mg tablet,delayed 40 mg PO DAILY 07/1907/27/24 release trazodone 100 mg tablet 100 mg PO HS 07/19/23 ascorbic acid (vitamin C) 1,000 mg 1 g PO QDAY 4 07/27/24 capsule cholecalciferol (vitamin D3) 25 25 mcg PO BID 03/16/24 07/27/24 mcg (1,000 unit) capsule levetiracetam 500 mg tablet 500 mg PO BID 03/16/2411/15 mecobalamin (vitamin B12) 1,000 2,000 mcg PO QDAY 02/2207/27/24 mcg chewable tablet tamsulosin 0.4 mg capsule 0.4 mg PO BID 03/16/2407/27 venlafaxine 75 mg tablet 225 mg PO QDAY 03/16/2411/15 vitamin E (dl, acetate) 180 mg 180 mg PO QDAY 03/16/24 07/27/24 (400 unit) capsule carvedilol 12.5 mg tablet 12.5 mg PO BID 05/01/2411/15 hydralazine 50 mg tablet 50 mg PO BID 05/01/24 furosemide 20 mg tablet 10 mg PO QAM 07/27/24 lamotrigine 150 mg tablet 150 mg PO BID 07/27/2407/27 losartan 100 mg tablet 100 mg PO Q OTHER DAY 07/27/24 sulfamethoxazole 800 1 tab PO BID #20 tabs mg-trimethoprim 160 mg tablet (Bactrim DS) Allergies Allergies Allergy/AdvReac Type Severity Reaction Status Date / Time No Known Drug Allergies Allergy Verified 10/19/24 23:30 Exam Exam Vital Signs: Vital Signs x48h Temp Pulse Resp BP Pulse Ox 10/19/24 23:23 38.0 C H 89 19 164/88 H 96 GEN: Alert and cooperative, no distress, easily confused HEENT: atraumatic, normocephalic, MMM PULM: CTABL, reg rate and pattern, no distress CV: RRR, no edema GI: soft, nontender, nondistended, normoactive bowel sounds MSK: no edema, MAEW SKIN: c/d/I NEURO: Alert, confused, follows commands, answers yes/no questions, unable to provide further details, insight and judgement impaired,, no focal deficits Conclusion/Plan Problem List (1) Pneumonia: Qualifiers: Pneumonia type: due to unspecified organism Laterality: unspecified laterality Lung location: unspecified part of lung Qualified Code(s): J18.9 - Pneumonia, unspecified organism (2) Congestive heart failure (CHF): Qualifiers: Heart failure type: systolic Heart failure chronicity: acute on chronic Qualified Code(s): I50.23 - Acute on chronic systolic (congestive) heart failure (3) Urinary tract infection: Qualifiers: Urinary tract infection type: acute cystitis Hematuria presence: w ithout hematuria Qualified Code(s): N30.00 - Acute cystitis without hematuria (4) Encephalopathy: Qualifiers: Encephalopathy type: metabolic Qualified Code(s): G93.41 - Metabolic encephalopathy (5) Hypertension: Qualifiers: Hypertension type: unspecified Qualified Code(s): I10 - Essential (primary) hypertension (6) Seizure disorder: Plan #ams with #acute on chronic chf exacerbation complicated by #possible pneumonia and #acute cystitis in setting of #htn #Hld #cad -ua pending -empiric abx -trend labs -IV diuresis -daily wts -monitor on tele -cont home meds -follow I&Os -trend labs -follow culture #mthfr gene mutation -cont Eliquis #Seizure disorder #hx of tbi -cont home meds The patient gave verbal consent to receive this telemedicine service, which I performed via live two-way audio/visual equipment. The patient is at [facility], and I am physically in [place]. Other participants include Son-in-law and nurse at bedside. * Lab Results Lab results reviewed: Yes 10/19/24 23:45 10/19/24 23:45
[2024-10-20 01:29] LABS: B. PARAPERTUSSIS- RESP PCR PAN NOT DETECTED; B. PERTUSSIS- RESP PCR PANEL NOT DETECTED; C. PNEUMONIAE- RESP PCR PANEL NOT DETECTED; CORONAVIRUS 229E-RESP PCR NOT DETECTED; CORONAVIRUS HKU1-RESP PCR NOT DETECTED; CORONAVIRUS NL63-RESP PCR NOT DETECTED; CORONAVIRUS OC43-RESP PCR NOT DETECTED; HUMAN METAPNEUMOVIRUS NOT DETECTED; INFLUENZA A- RESP PCR PANEL NOT DETECTED; INFLUENZA B - RESP PCR PANEL NOT DETECTED; M. PNEUMONIAE- RESP PCR PANEL NOT DETECTED; PARAINFLUENZA VIRUS 1 NOT DETECTED; PARAINFLUENZA VIRUS 2 NOT DETECTED; PARAINFLUENZA VIRUS 4 NOT DETECTED; RHINOVIRUS/ENTEROVIRUS NOT DETECTED; RSV- RESP PCR PANEL NOT DETECTED; SARS-CoV-2 -RESP PCR PANEL NOT DETECTED
[2024-10-20] MEDS: SODIUM CHLORIDE FLUSH 0.9% 10 ML SYRINGE IVP SCH (01:40)
[2024-10-20 07:32] LABS: BASOPHILS % (AUTO) 0.3 %; EOSINOPHILS % (AUTO) 0.3 %; HCT - HEMATOCRIT 38.6 % (42.0-52.0); HGB - HEMOGLOBIN 12.6 g/dL (14.0-18.0); LYMPHOCYTES # (AUTO) 2.2 10^3/uL (1.5-3.5); LYMPHOCYTES % (AUTO) 17.3 %; MEAN CORPUSCULAR HEMOGLOBIN 32.2 pg (27.0-31.0); MEAN CORPUSCULAR HGB CONC 32.6 g/dL (32.0-36.0); MEAN CORPUSCULAR VOLUME 98.7 fL (80.0-94.0); MEAN PLATELET VOLUME 9.1 fL (7.4-11.4); MONOCYTES # (AUTO) 0.7 10^3/uL (0.0-1.0); MONOCYTES % (AUTO) 5.8 %; NEUTROPHILS # (AUTO) 9.7 10^3/uL (1.5-6.6); NEUTROPHILS % (AUTO) 75.8 %; PLT - PLATELET COUNT 156 10^3/uL (130-450); RED BLOOD COUNT 3.91 10^6/uL (4.70-6.10); RED CELL DISTRIBUTION WIDTH 13.4 % (12.0-15.0); WHITE BLOOD COUNT 12.8 x10^3/uL (4.8-10.8)
[2024-10-20 07:44] LABS: CALCIUM 8.5 mg/dL (8.5-10.3); CREATININE 1.2 mg/dL (0.6-1.3); POTASSIUM 3.8 mmol/L (3.5-4.5)
[2024-10-20] MEDS: lamoTRIgine 100 MG TABLET PO SCH (08:08)
[2024-10-20] MEDS: ISOSORBIDE MONONITRATE ER 30 MG TABLET PO SCH (08:09)
[2024-10-20] MEDS: PANTOPRAZOLE 40 MG TABLET PO SCH (08:09)
[2024-10-20] MEDS: VENLAFAXINE 37.5 MG TABLET PO SCH (08:09)
[2024-10-20] MEDS: GABAPENTIN 300 MG CAPSULE PO SCH (08:09)
[2024-10-20] MEDS: hydrALAZINE 25 MG TABLET PO SCH (08:09)
[2024-10-20] MEDS: TAMSULOSIN 0.4 MG CAPSULE PO SCH (08:09)
[2024-10-20] MEDS: FINASTERIDE 5 MG TABLET PO SCH (08:09)
[2024-10-20] MEDS: levETIRAcetam 250 MG TABLET PO SCH (08:09)
[2024-10-20] MEDS: carvediloL 12.5 MG TABLET PO SCH (08:09)
[2024-10-20] MEDS: APIXABAN 5 MG TABLET PO SCH (08:09)
[2024-10-20] MEDS: FUROSEMIDE 20 MG/2 ML VIAL IVP SCH (08:09)
--- NOTE | 2024-10-20 13:28 | PROVIDER PROGRESS NOTE ---
Subjective Prog Note Date Prog Note Date: 10/20/24 Subjective Subjective: Admitted overnight for acute hypoxic respiratory failure with leukocytosis and questionable bronchitis versus CHF exacerbation on chest x-ray. He is sitting up in bed on room air. Has baseline level of confusion,. Granddaughter sitting at bedside states he has been confused for about 2 days. She states that he does this every time his goes out of town. It sounds as if his goes out of town quite frequently however. At baseline he is wheelchair bound for > 1 year. he has a sit to stand lift at home, and uses this. He does not always call for help when he wants to get up, and does occasionally fall, but these falls in the past have been back into his wheelchair or bed. When I asked him why he is here in the hops[facility], he tells be "because I have problems". Current Medications Current Medications Current Medications: Current Medications Generic Name Dose Route Start Last Admin Trade Name Freq PRN Reason Stop Dose Admin Acetaminophen 650 mg 10/20/24 00:39 Acetaminophen 325 Mg Tablet PO Q4HR PRN Pain 1 to 4, or Fever Apixaban 5 mg 10/20/24 09:00 10/20/24 08:09 Apixaban 5 Mg Tablet PO 5 mg BID SAQIB Administration Atorvastatin Calcium 20 mg 10/20/24 21:00 Atorvastatin 10 Mg Tablet PO QPM SAQIB Carvedilol 12.5 mg 10/20/24 09:00 10/20/24 08:09 Carvedilol 12.5 Mg Tablet PO 12.5 mg BID SAQIB Administration Finasteride 5 mg 10/20/24 09:00 10/20/24 08:09 Finasteride 5 Mg Tablet PO 5 mg DAILY SAQIB Administration Furosemide 20 mg 10/20/24 09:00 10/20/24 08:09 Furosemide 20 Mg/2 Ml Vial IVP 20 mg BID SAQIB Administration Gabapentin 300 mg 10/20/24 09:00 10/20/24 08:09 Gabapentin 300 Mg Capsule PO 300 mg BID SAQIB Administration Hydralazine HCl 50 mg 10/20/24 09:00 10/20/24 08:09 Hydralazine 25 Mg Tablet PO 50 mg BID SAQIB Administration Ceftriaxone Sodium 1 gm/ 100 mls @ 200 mls/hr 10/20/24 22:00 Sodium Chloride IV Q24H SAQIB Azithromycin 500 mg/ Sodium 250 mls @ 250 mls/hr 10/20/24 21:00 Chloride IV Q24H SAQIB Isosorbide Mononitrate 30 mg 10/20/24 09:00 10/20/24 08:09 Isosorbide Mononitrate Er 30 Mg Tablet PO 30 mg DAILY SAQIB Administration Lamotrigine 150 mg 10/20/24 09:00 10/20/24 08:08 Lamotrigine 100 Mg Tablet PO 150 mg BID SAQIB Administration Levetiracetam 500 mg 10/20/24 09:00 10/20/24 08:09 Levetiracetam 250 Mg Tablet PO 500 mg BID SAQIB Administration Losartan Potassium 100 mg 10/20/24 09:00 Losartan 50 Mg Tablet PO Q OTHER DAY SAQIB Morphine Sulfate 2 mg 10/20/24 00:39 Morphine 2 Mg/Ml Carpuject IVP Q2HR PRN Pain 8 to 10 Ondansetron HCl 4 mg 10/20/24 00:39 Ondansetron 4 Mg/2 Ml Vial IVP Q6HR PRN Nausea / Vomiting Oxycodone HCl 5 mg 10/20/24 00:39 Oxycodone 5 Mg Tablet PO Q4HR PRN Pain 5 to 7 Pantoprazole Sodium 40 mg 10/20/24 09:00 10/20/24 08:09 Pantoprazole 40 Mg Tablet PO 40 mg DAILY SAQIB Administration Sodium Chloride 10 ml 10/20/24 00:39 Sodium Chloride Flush 0.9% 10 Ml Syringe IVP PRN PRN NEEDED PER PROVIDER ORDERS Sodium Chloride 10 ml 10/20/24 01:00 10/20/24 08:10 Sodium Chloride Flush 0.9% 10 Ml Syringe IVP 10 ml 0100,0900,1700 SAQIB Administration Tamsulosin HCl 0.4 mg 10/20/24 09:00 10/20/24 08:09 Tamsulosin 0.4 Mg Capsule PO 0.4 mg BID SAQIB Administration Trazodone HCl 100 mg 10/20/24 21:00 Trazodone 50 Mg Tablet PO HS [facility] Venlafaxine HCl 225 mg 10/20/24 09:00 10/20/24 08:09 Venlafaxine 37.5 Mg Tablet PO 225 mg DAILY SAQIB Administration Objective Vital Signs/Intake & Output Reviewed Vital Signs: Yes Vital Signs: Vital Signs x48h Temp Pulse Resp BP Pulse Ox O2 Flow Rate 10/20/24 12:39 36.6 C 68 20 126/78 95 10/20/24 08:19 36.8 C 73 20 139/84 H 96 10/20/24 08:00 4 Intake & Output: Intake & Output 10/17/24 10/18/24 10/19/24 10/20/24 23:59 23:59 23:59 23:59 Intake Total 1689 / 1690 Output Total 0 / 0 Balance 1689 / 1689 Weight (kg) 104 kg 99.5 kg Objective General Appearance: positive No acute distress and Other (sitting up in bed with eyes closed, he answers my questions, but does not open eyes) Eyes Bilateral: positive Conjunctivae nml Neck: positive Nml inspection Respiratory: positive No respiratory distress and Breath sounds nml; negative Wheezes, Rales or Rhonchi Cardiovascular: positive Regular rate & rhythm Abdomen: positive Non-tender and No distention Back: positive Nml inspection Skin: positive Color nml Extremities: positive Non-tender and No pedal edema Neurologic/Psychiatric: positive Other (oriented to place and self, not time. ) Lab Results 10/20/24 07:26 10/20/24 07:26 Other Labs: Lab Results x24hrs 10/20/24 10/20/24 10/20/24 Range/Units 07:26 00:19 00:08 WBC 12.8 H (4.8-10.8) x10^3/uL RBC 3.91 L (4.70-6.10) 10^6/uL Hgb 12.6 L (14.0-18.0) g/dL Hct 38.6 L (42.0-52.0) % MCV 98.7 H (80.0-94.0) fL MCH 32.2 H (27.0-31.0) pg MCHC 32.6 (32.0-36.0) g/dL RDW 13.4 (12.0-15.0) % Plt Count 156 (130-450) 10^3/uL MPV 9.1 (7.4-11.4) fL Neut # (Auto) 9.7 H (1.5-6.6) 10^3/uL Lymph # (Auto) 2.2 (1.5-3.5) 10^3/uL Harvey # (Auto) 0.7 (0.0-1.0) 10^3/uL Eos # (Auto) 0.0 (0.0-0.7) 10^3/uL Baso # (Auto) 0.0 (0.0-0.1) 10^3/uL Absolute Nucleated RBC 0.00 x10^3/uL Nucleated RBC % 0.0 /100WBC APTT 38.3 H (24.9-33.3) secs Sodium 142 (135-145) mmol/L Potassium 3.8 (3.5-4.5) mmol/L Chloride 109 (101-111) mmol/L Carbon Dioxide 27 (21-32) mmol/L Anion Gap 6.0 (6-13) BUN 20 (6-20) mg/dL Creatinine 1.2 (0.6-1.3) mg/dL Estimated GFR (MDRD) 58 L (>89) Glucose 109 H (74-104) mg/dL Lactic Acid 2.2 (0.5-2.2) mmol/L Calcium 8.5 (8.5-10.3) mg/dL Total Bilirubin (0.2-1.0) mg/dL AST (10-42) IU/L ALT (10-60) IU/L Alkaline Phosphatase (42-121) IU/L Total Protein (6.4-8.9) g/dL Albumin (3.2-5.5) g/dL Globulin (2.1-4.2) g/dL Albumin/Globulin Ratio (1.0-2.2) Urine Color Urine Clarity (CLEAR) Urine pH (5.0-7.5) PH Ur Specific Nelson (1.002-1.030) Urine Protein (NEGATIVE) mg/dL Urine Glucose (UA) (NEGATIVE) mg/dL Urine Ketones (NEGATIVE) mg/dL Urine Occult Blood (NEGATIVE) Urine Nitrite (NEGATIVE) Urine Bilirubin (NEGATIVE) Urine Urobilinogen (NORMAL) E.U./dL Ur Leukocyte Esterase (NEGATIVE) Urine RBC (0-5) /HPF Urine WBC (0-3) /HPF Ur Squamous Epith Cells (<= Few) Urine Bacteria (None Seen) /HPF Urine Culture Comments Nasal Adenovirus (PCR) NOT DETECTED Nasal B. parapertussis DNA (PCR) NOT DETECTED Nasal Coronavir 229E PCR NOT DETECTED Nasal Coronavir HKU1 PCR NOT DETECTED Nasal Coronavir NL63 PCR NOT DETECTED Nasal Coronavir OC43 PCR NOT DETECTED Nasal Enterovir/Rhinovir PCR NOT DETECTED Nasal Influenza B PCR NOT DETECTED Nasal Influenza A PCR NOT DETECTED Nasal Parainfluen 1 PCR NOT DETECTED Nasal Parainfluen 2 PCR NOT DETECTED Nasal Parainfluen 3 PCR NOT DETECTED Nasal Parainfluen 4 PCR NOT DETECTED Nasal RSV (PCR) NOT DETECTED Nasal B.pertussis DNA PCR NOT DETECTED Nasal C.pneumoniae (PCR) NOT DETECTED Krzysztof Human Metapneumo PCR NOT DETECTED Nasal M.pneumoniae (PCR) NOT DETECTED Nasal SARS-CoV-2 (PCR) NOT DETECTED 10/19/24 10/19/24 Range/Units 23:45 23:35 WBC 15.4 H (4.8-10.8) x10^3/uL RBC 4.19 L (4.70-6.10) 10^6/uL Hgb 13.3 L (14.0-18.0) g/dL Hct 42.0 (42.0-52.0) % MCV 100.2 H (80.0-94.0) fL MCH 31.7 H (27.0-31.0) pg MCHC 31.7 L (32.0-36.0) g/dL RDW 13.5 (12.0-15.0) % Plt Count 177 (130-450) 10^3/uL MPV 9.6 (7.4-11.4) fL Neut # (Auto) 13.1 H (1.5-6.6) 10^3/uL Lymph # (Auto) 1.3 L (1.5-3.5) 10^3/uL Harvey # (Auto) 0.9 (0.0-1.0) 10^3/uL Eos # (Auto) 0.0 (0.0-0.7) 10^3/uL Baso # (Auto) 0.0 (0.0-0.1) 10^3/uL Absolute Nucleated RBC 0.00 x10^3/uL Nucleated RBC % 0.0 /100WBC APTT (24.9-33.3) secs Sodium 142 (135-145) mmol/L Potassium 4.0 (3.5-4.5) mmol/L Chloride 107 (101-111) mmol/L Carbon Dioxide 27 (21-32) mmol/L Anion Gap 8.0 (6-13) BUN 20 (6-20) mg/dL Creatinine 1.2 (0.6-1.3) mg/dL Estimated GFR (MDRD) 58 L (>89) Glucose 139 H (74-104) mg/dL Lactic Acid (0.5-2.2) mmol/L Calcium 9.2 (8.5-10.3) mg/dL Total Bilirubin 0.8 (0.2-1.0) mg/dL AST 14 (10-42) IU/L ALT 16 (10-60) IU/L Alkaline Phosphatase 99 (42-121) IU/L Total Protein 7.0 (6.4-8.9) g/dL Albumin 3.9 (3.2-5.5) g/dL Globulin 3.1 (2.1-4.2) g/dL Albumin/Globulin Ratio 1.3 (1.0-2.2) Urine Color YELLOW Urine Clarity CLEAR (CLEAR) Urine pH 7.5 (5.0-7.5) PH Ur Specific Nelson 1.020 (1.002-1.030) Urine Protein NEGATIVE (NEGATIVE) mg/dL Urine Glucose (UA) NEGATIVE (NEGATIVE) mg/dL Urine Ketones NEGATIVE (NEGATIVE) mg/dL Urine Occult Blood NEGATIVE (NEGATIVE) Urine Nitrite NEGATIVE (NEGATIVE) Urine Bilirubin NEGATIVE (NEGATIVE) Urine Urobilinogen 1 (NORMAL) (NORMAL) E.U./dL Ur Leukocyte Esterase NEGATIVE (NEGATIVE) Urine RBC 0-5 (0-5) /HPF Urine WBC 4-5 (0-3) /HPF Ur Squamous Epith Cells RARE Squamous (<= Few) Urine Bacteria None Seen (None Seen) /HPF Urine Culture Comments NOT INDICATED Nasal Adenovirus (PCR) Nasal B. parapertussis DNA (PCR) Nasal Coronavir 229E PCR Nasal Coronavir HKU1 PCR Nasal Coronavir NL63 PCR Nasal Coronavir OC43 PCR Nasal Enterovir/Rhinovir PCR Nasal Influenza B PCR Nasal Influenza A PCR Nasal Parainfluen 1 PCR Nasal Parainfluen 2 PCR Nasal Parainfluen 3 PCR Nasal Parainfluen 4 PCR Nasal RSV (PCR) Nasal B.pertussis DNA PCR Nasal C.pneumoniae (PCR) Krzysztof Human Metapneumo PCR Nasal M.pneumoniae (PCR) Nasal SARS-CoV-2 (PCR) Assessment/Plan Problem List (1) Acute hypoxic respiratory failure: Impression: Resolving.He has no history of underlying lung disease. He is not on any inhalers at baseline. He does not currently smoke. He came in with a leukocytosis of 15.4. There are no recorded fevers. He did have hypoxia down to 86% on room air at the time of admission. Overnight he has been able to wean off of supplemental oxygen and is currently on room air. He is fatigued this afternoon, sitting up. and falling asleep while eating his lunch. His respiratory failure is thought to be secondary to community-acquired pneumonia. Please see details of treatment below. (2) Pneumonia: Impression: Community-acquired pneumonia. This patient is day 1 of 5 for Rocephin and day 1 of 3 for azithromycin. Antibiotics were given just after midnight. His hypoxia is secondary to community-acquired pneumonia. His hypoxia is resolving. He has been seen by physical therapy and Occupational Therapy and cleared to discharge to home with home health. He has appropriate equipment and care at home. Qualifiers: Laterality: unspecified laterality Lung location: unspecified part of lung Pneumonia type: due to unspecified organism Qualified Code(s): J18.9 - Pneumonia, unspecified organism (3) Congestive heart failure (CHF): Impression: History of CA in 2019. peribronchial cuffing seen on chest x-ray indicative of some pulmonary edema. He has since been seen by cardiology in the past. In the diagnosis section of his chart I see an ejection fraction recorded as 35%. I cannot find any echocardiogram on file to correlate with this number.He does have established cardiology in the area. He is a patient at the [facility]. BNP was not measured at admission. He does not have increasing hypoxia. I will continue on his currently ordered dose of diuretics which is Lasix 20 mg IV twice daily. He does not have any significant peripheral edema at this time. Qualifiers: Heart failure chronicity: acute on chronic Heart failure type: systolic Qualified Code(s): I50.23 - Acute on chronic systolic (congestive) heart failure (4) Urinary tract infection: Impression: Urinalysis obtained at the time of admission is negative for infection. This patient does not have a urinary tract infection. Qualifiers: Hematuria presence: without hematuria Urinary tract infection type: a cute cystitis Qualified Code(s): N30.00 - Acute cystitis without hematuria (5) Encephalopathy: Impression: Secondary to acute hypoxic respiratory failure. He is improving in his mental status. He has been confused at home for several days. His granddaughter who is sitting at the bedside states that he is close to his baseline at this time. Qualifiers: Encephalopathy type: metabolic Qualified Code(s): G93.41 - Metabolic encephalopathy (6) Hypertension: Impression: Past medical history of hypertension. Also in reviewing the records there is some issues with compliance of with medications occasionally taking too much medication and having symptomatic hypotension. He is currently on carvedilol 12.5 mg twice daily, hydralazine 50 mg twice daily, isosorbide 30 mg daily losartan 100 mg every other day I do not see a GLP-1 prescribed for his CHF. Qualifiers: Hypertension type: unspecified Qualified Code(s): I10 - Essential (primary) hypertension (7) Seizure disorder: Impression: History of traumatic brain injury many years ago. Patient is on seizure medications at baseline. These have been continued while here. 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 I have continued this medication.
--- NOTE | 2024-10-20 14:12 | OT Plan of Care ---
OT Plan of Care OT Plan of Care: Diagnosis Diagnosis AHRF Chief Complaint AMS Surgical History (Updated 03/16/24 @ 12:32 by Mounika Kruse, RN, BSN) Urethral stricture 2 procedures to correct S/P IVC filter IVCF placed and removed in 2020 PEG (percutaneous endoscopic gastrostomy) status 2019 PEG Tube placed 2019 PEG tube removed Hx of heart artery stent 2018 cardiac stents x 2 History of sternectomy 2011? 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 History of surgery 1994 Right frontal lobotomy History of brain surgery 1987 after TBI Medical History (Updated 10/20/24 @ 13:24 by PEMA [place]) Dementia following traumatic brain injury Syncope and collapse (07/29/23) Sciatica, right side (04/08/23) Obstructive sleep apnea (04/08/23) refuses CPAP Insomnia (04/08/23) Hyperlipidemia (04/08/23) History of ST elevation myocardial infarction (STEMI) (04/08/23) Hx of deep venous thrombosis (04/08/23) GERD (gastroesophageal reflux disease) (04/08/23) Clotting disorder (04/08/23) BPH with lower urinary tract symptoms without urinary obstruction (04/08/23) Lumbar back pain (04/08/23) Anemia, iron deficiency (09/08/23) Assessment Assessment PT is a 84 y/o male adm with AMS and emesis. Found to be in AHRF, encephalopathic. PMHx significant for TBI and delirium-24 hr care wc bound at home with family. Met supine in bed, A& Ox1 to self only. Follows all commands with increased time and cues. Performed rolling R<>L DEP x2 during DEP hygiene - MAX A feeding with full set up and upright position in bed. Currently MAX-DEP ADL's and use of JIAN for OO B to chair prn with staff. Pt will benefit from cont OT services during acute stay. Rec d/c home with HHOT/OT and family assist however SNF if family unable to provide care needs. Goals - Activities of Daily Living Improve Upper Extremity Moderate Assist Dressing to: Improve Grooming/Hygiene to: Moderate Assist Plan Treatment Frequency 2 to 3 times/week Duration Until discharge -Discharge Recommendations Discharge Location Previous Living Situation Support/Services Needed With assist,Home Health O.T. Transport Needs at Discharge B.L.S
--- NOTE | 2024-10-20 14:16 | PT Plan of Care ---
PT Inpatient Plan of Care DIAGNOSIS Diagnosis: AHRF Diagnosis: CHF Referring Provider: Patrica Hopkins Patient Status: Observation CHIEF COMPLAINT Chief Complaint: AMS Onset of Chief Complaint: OUTPATIENT PHYSICAL THERAPIST MEDICAL/SURGICAL HISTORY Medical History Dementia following traumatic brain injury Syncope and collapse (07/29/23) Sciatica, right side (04/08/23) Obstructive sleep apnea (04/08/23) refuses CPAP Insomnia (04/08/23) Hyperlipidemia (04/08/23) History of ST elevation myocardial infarction (STEMI) (04/08/23) Hx of deep venous thrombosis (04/08/23) GERD (gastroesophageal reflux disease) (04/08/23) Clotting disorder (04/08/23) BPH with lower urinary tract symptoms without urinary obstruction (04/08/23) Lumbar back pain (04/08/23) Anemia, iron deficiency (09/08/23) Surgical History Urethral stricture 2 procedures to correct S/P IVC filter IVCF placed and removed in 2020 PEG (percutaneous endoscopic gastrostomy) status 2019 PEG Tube placed 2019 PEG tube removed Hx of heart artery stent 2018 cardiac stents x 2 History of sternectomy 2011? 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 History of surgery 1994 Right frontal lobotomy History of brain surgery 1987 after TBI BALANCE/FUNCTIONAL RESULTS Sitting Balance: Unable Standing Balance: Unable ASSESSMENT Assessment: Pt is a pleasant 84yo M referred for PT eval d/t confusion. Admitted with AHRF, pna, CHF exac, encephalopathy. Pt has h/o TBI, frontal lobotomy and seizure disorder. Is chairfast at baseline and lives with supportive family who reportedly have all equipment and caregiver needs set in place. Per SW pt is well cared for in home environment. Upon PT eval, pt is awake, alert, and A&Ox1- 2. Able to follow some cueing, hypoverbal, active motion to all 4 limbs and agreeable to participate. Pt presents at or near baseline mobility. Will require overhead lift for all transfers out of bed during hospital stay d/t confusion, weakness, and incoordination. If pt is transferred to b/s chair he will require 1:1 sitter for safety. Pt may benefit from skilled PT while in acute setting to progress his bed mobility and upright tolerance. Plan for 1-2 sessions/week while in acute setting. When medically clear, PT rec dc home provided family is able to meet his care needs and has all necessary equipment. PLAN Duration: 1-2 add'l sessions DISCHARGE RECOMMENDATIONS Discharge Location: Previous Living Situation Support/Services Needed: Home Health P.T. Other Discharge Equipment: none anticipated, clarify with family Transport Needs at Discharge: Ben
--- NOTE | 2024-10-20 17:06 | PHARMACY PROGRESS NOTE ---
Best Possible Medication History Admit Date and Time: 10/20/24 0039 Home Medications Medication Instructions Recorded Confirmed Type apixaban 5 mg tablet (Eliquis) 5 mg PO BID 07/19/23 History atorvastatin 20 mg tablet 20 mg PO QPM 07/19/23 History finasteride 5 mg tablet 5 mg PO DAILY 07/19/2310/20 History gabapentin 600 mg tablet 300 mg PO BID 07/19/2310/20 History (Neurontin) isosorbide mononitrate 30 mg 30 mg PO DAILY 07/19/23 0 10/20/24 History tablet,extended release 24 hr nitroglycerin 0.4 mg sublingual 0.4 mg sublingual Q5MI NX3 PRN 07/19/23 10/20/24 History tablet Chest Pain pantoprazole 40 mg tablet,delayed 40 mg PO DAILY 07/1910/20/24 History release trazodone 100 mg tablet 100 mg PO HS 07/19/23 History ascorbic acid (vitamin C) 1,000 mg 1 g PO DAILY 10/20/24 History capsule cholecalciferol (vitamin D3) 25 25 mcg PO BID 03/16/24 10/20/24 History mcg (1,000 unit) capsule levetiracetam 500 mg tablet 500 mg PO BID 03/16/24 History mecobalamin (vitamin B12) 1,000 2,000 mcg PO DAILY 10/20/24 History mcg chewable tablet tamsulosin 0.4 mg capsule 0.4 mg PO BID 03/16/2410/20 History Held on 10/20/24. Instructions: Per Daughter venlafaxine 75 mg tablet 225 mg PO DAILY 03/16/24 History vitamin E (dl, acetate) 180 mg 180 mg PO DAILY 4 10/20/24 History (400 unit) capsule carvedilol 12.5 mg tablet 12.5 mg PO BID 05/01/2409/23 History hydralazine 50 mg tablet 50 mg PO BID 05/01/24 History furosemide 20 mg tablet 10 mg PO QAM 07/27/24 History lamotrigine 150 mg tablet 150 mg PO BID 07/27/2410/20 History losartan 100 mg tablet 100 mg PO Q OTHER DAY 10/20/24 History aspirin 81 mg chewable tablet 81 mg PO DAILY 10/20/24 10/20/24 History (Nae Chewable Low Dose Aspirin) clonidine HCl .ROUTE BP over 160 10/20/24 History sennosides 8.6 mg tablet (Natural 8.6 mg PO DAILY PRN constipation 10/20/24 10/20/24 History Senna Laxative) Processed by: Pharmacy Medications reviewed in ED?: No Medication History completed: Yes Patient Interview: Pt unable to participate Secondary Source(s): Other family member (Daughter interviewed by resident care technician, Moon) [facility] Statement: As the person ultimately responsible for medication therapy, providers are able to order a medication from an existing home medication list in [facility] via the "Reconcile Routine" prior to Confirmation of that medication by ict support engineer. Such practice is discouraged except when the physician, in their clinical judgment, deems that a medical need exists for a medication without regard to previous use.
[2024-10-20] MEDS: ATORVASTATIN 10 MG TABLET PO SCH (21:16)
[2024-10-20] MEDS: AZITHROMYCIN INJ 500 MG in SODIUM CHLORIDE 0.9% 250 ML IV SCH (21:17)
[2024-10-20] MEDS: traZODone 50 MG TABLET PO SCH (21:17)
[2024-10-20] MEDS: cefTRIAXone 1 GM in SODIUM CHLORIDE 0.9% MINIBAG 100 ML IV SCH (21:18)
[2024-10-21 05:21] LABS: BASOPHILS % (AUTO) 0.3 %; EOSINOPHILS # (AUTO) 0.1 10^3/uL (0.0-0.7); HCT - HEMATOCRIT 40.8 % (42.0-52.0); HGB - HEMOGLOBIN 12.8 g/dL (14.0-18.0); LYMPHOCYTES # (AUTO) 2.3 10^3/uL (1.5-3.5); LYMPHOCYTES % (AUTO) 22.9 %; MEAN CORPUSCULAR HGB CONC 31.4 g/dL (32.0-36.0); MEAN PLATELET VOLUME 9.4 fL (7.4-11.4); MONOCYTES # (AUTO) 0.8 10^3/uL (0.0-1.0); MONOCYTES % (AUTO) 7.8 %; NEUTROPHILS # (AUTO) 6.7 10^3/uL (1.5-6.6); NEUTROPHILS % (AUTO) 67.7 %; PLT - PLATELET COUNT 167 10^3/uL (130-450); RED CELL DISTRIBUTION WIDTH 13.6 % (12.0-15.0); WHITE BLOOD COUNT 9.9 x10^3/uL (4.8-10.8)
[2024-10-21 05:39] LABS: CALCIUM 8.8 mg/dL (8.5-10.3); CREATININE 1.2 mg/dL (0.6-1.3); POTASSIUM 3.6 mmol/L (3.5-4.5)
--- NOTE | 2024-10-21 14:34 | PROVIDER PROGRESS NOTE ---
Subjective Prog Note Date Prog Note Date: 10/21/24 Subjective Subjective: He had a rough night. He pulled out his IVs he became quite delirious. He did not run any fevers did not become hypoxic he was maintained on room air. However, with his current mental state his daughter feels that she cannot take him home.He had been confused much like this at home which was part of the reason that he came into the emergency department in the first place. Current Medications Current Medications Current Medications: Current Medications Generic Name Dose Route Start Last Admin Trade Name Freq PRN Reason Stop Dose Admin Acetaminophen 650 mg 10/20/24 00:39 Acetaminophen 325 Mg Tablet PO Q4HR PRN Pain 1 to 4, or Fever Apixaban 5 mg 10/20/24 09:00 10/21/24 08:18 Apixaban 5 Mg Tablet PO 5 mg BID SAQIB Administration Atorvastatin Calcium 20 mg 10/20/24 21:00 10/20/24 21:16 Atorvastatin 10 Mg Tablet PO 20 mg QPM SAQIB Administration Carvedilol 12.5 mg 10/20/24 09:00 10/21/24 08:18 Carvedilol 12.5 Mg Tablet PO 12.5 mg BID SAQIB Administration Finasteride 5 mg 10/20/24 09:00 10/21/24 08:18 Finasteride 5 Mg Tablet PO 5 mg DAILY SAQIB Administration Furosemide 20 mg 10/20/24 09:00 10/21/24 08:17 Furosemide 20 Mg/2 Ml Vial IVP 20 mg BID SAQIB Administration Gabapentin 300 mg 10/20/24 09:00 10/21/24 08:18 Gabapentin 300 Mg Capsule PO 300 mg BID SAQIB Administration Hydralazine HCl 50 mg 10/20/24 09:00 10/21/24 08:18 Hydralazine 25 Mg Tablet PO 50 mg BID SAQIB Administration Ceftriaxone Sodium 1 gm/ 100 mls @ 200 mls/hr 10/20/24 22:00 10/20/24 23:22 Sodium Chloride IV Infused Q24H SAQIB Infusion Azithromycin 500 mg/ Sodium 250 mls @ 250 mls/hr 10/20/24 21:00 10/20/24 22:31 Chloride IV Infused Q24H SAQIB Infusion Isosorbide Mononitrate 30 mg 10/20/24 09:00 10/21/24 08:18 Isosorbide Mononitrate Er 30 Mg Tablet PO 30 mg DAILY SAQIB Administration Lamotrigine 150 mg 10/20/24 09:00 10/21/24 08:18 Lamotrigine 100 Mg Tablet PO 150 mg BID SAQIB Administration Levetiracetam 500 mg 10/20/24 09:00 10/21/24 08:17 Levetiracetam 250 Mg Tablet PO 500 mg BID SAQIB Administration Losartan Potassium 100 mg 10/20/24 09:00 Losartan 50 Mg Tablet PO Q OTHER DAY SAQIB Morphine Sulfate 2 mg 10/20/24 00:39 Morphine 2 Mg/Ml Carpuject IVP Q2HR PRN Pain 8 to 10 Ondansetron HCl 4 mg 10/20/24 00:39 Ondansetron 4 Mg/2 Ml Vial IVP Q6HR PRN Nausea / Vomiting Oxycodone HCl 5 mg 10/20/24 00:39 Oxycodone 5 Mg Tablet PO Q4HR PRN Pain 5 to 7 Pantoprazole Sodium 40 mg 10/20/24 09:00 10/21/24 08:18 Pantoprazole 40 Mg Tablet PO 40 mg DAILY SAQIB Administration Sodium Chloride 10 ml 10/20/24 00:39 Sodium Chloride Flush 0.9% 10 Ml Syringe IVP PRN PRN NEEDED PER PROVIDER ORDERS Sodium Chloride 10 ml 10/20/24 01:00 10/21/24 08:19 Sodium Chloride Flush 0.9% 10 Ml Syringe IVP 10 ml 0100,0900,1700 SAQIB Administration Tamsulosin HCl 0.4 mg 10/20/24 09:00 10/21/24 08:18 Tamsulosin 0.4 Mg Capsule PO 0.4 mg BID SAQIB Administration Trazodone HCl 100 mg 10/20/24 21:00 10/20/24 21:17 Trazodone 50 Mg Tablet PO 100 mg HS SAQIB Administration Venlafaxine HCl 225 mg 10/20/24 09:00 10/21/24 08:17 Venlafaxine 37.5 Mg Tablet PO 225 mg DAILY SAQIB Administration Objective Vital Signs/Intake & Output Reviewed Vital Signs: Yes Vital Signs: Vital Signs x48h Temp Pulse Resp BP Pulse Ox 10/21/24 13:00 36.7 C 72 20 134/84 H 95 10/21/24 09:00 36.6 C 76 20 127/70 99 Intake & Output: Intake & Output 05/10/19/24 10/20/24 10/21/24 23:59 23:59 23:59 23:59 Intake Total 2450 / 2450 360 / 360 Output Total 550 / 550 900 / 900 Balance 1900 / 1900 -540 / -540 Weight (kg) 104 kg 99.5 kg 98 kg Objective General Appearance: positive No acute distress and Other (sitting up in bed with eyes closed, he answers my questions, but does not open eyes) Eyes Bilateral: positive Conjunctivae nml Neck: positive Nml inspection Respiratory: positive No respiratory distress and Breath sounds nml; negative Wheezes, Rales or Rhonchi Cardiovascular: positive Regular rate & rhythm Abdomen: positive Non-tender and No distention Back: positive Nml inspection Skin: positive Color nml Extremities: positive Non-tender and No pedal edema Neurologic/Psychiatric: positive Other (oriented to place and self, not time. ) Lab Results 10/21/24 04:51 10/21/24 04:51 Other Labs: Lab Results x24hrs 10/21/24 Range/Units 04:51 WBC 9.9 (4.8-10.8) x10^3/uL RBC 4.00 L (4.70-6.10) 10^6/uL Hgb 12.8 L (14.0-18.0) g/dL Hct 40.8 L (42.0-52.0) % MCV 102.0 H (80.0-94.0) fL MCH 32.0 H (27.0-31.0) pg MCHC 31.4 L (32.0-36.0) g/dL RDW 13.6 (12.0-15.0) % Plt Count 167 (130-450) 10^3/uL MPV 9.4 (7.4-11.4) fL Neut # (Auto) 6.7 H (1.5-6.6) 10^3/uL Lymph # (Auto) 2.3 (1.5-3.5) 10^3/uL Hopkins # (Auto) 0.8 (0.0-1.0) 10^3/uL Eos # (Auto) 0.1 (0.0-0.7) 10^3/uL Baso # (Auto) 0.0 (0.0-0.1) 10^3/uL Absolute Nucleated RBC 0.00 x10^3/uL Nucleated RBC % 0.0 /100WBC Sodium 142 (135-145) mmol/L Potassium 3.6 (3.5-4.5) mmol/L Chloride 107 (101-111) mmol/L Carbon Dioxide 28 (21-32) mmol/L Anion Gap 7.0 (6-13) BUN 19 (6-20) mg/dL Creatinine 1.2 (0.6-1.3) mg/dL Estimated GFR (MDRD) 58 L (>89) Glucose 107 H (74-104) mg/dL Calcium 8.8 (8.5-10.3) mg/dL Assessment/Plan Problem List (1) Encephalopathy: Impression: Worsening despite correction of his acute hypoxic respiratory failure. He has been confused at home for several days prior to admission. His daughter who is his primary caregiver feels that she cannot take him home at this point. His owning was quite severe overnight. He pulled out his IVs he tried to get out of bed and could have fallen. He was awake all night. He has done this at home previously and she states that their family cannot manage this situation at home. He does not have any focal neurologic deficits. He is moving all extremities and following commands. He is oriented to self and place but not to time. Had a discussion with his daughter yesterday evening and she thought they could meet his care needs at home given that they have all of the needed durable medical equipment. However, with his encephalopathy which became worse overnight this morning she states that she does not feel that she can care for him at home. She is interested in [place] respite care, she states that she gets 3 weeks of this a year and she has never used the benefit. [facility] and [facility] them information regarding transferring this patient for his acute delirium. Did discuss advance care planning with the daughter. She would like to complete a POLST. She like would like her father to be able to sign the POLST. Unfortunately his mental status is such that he is unable at this point. We will revisit this when and if his delirium clears. Qualifiers: Encephalopathy type: metabolic Qualified Code(s): G93.41 - Metabolic encephalopathy (2) Acute hypoxic respiratory failure: Impression: Resolved. He has no history of underlying lung disease. He is not on any inhalers at baseline. He does not currently smoke. He came in with a leukocytosis of 15.4. There are no recorded fevers. He did have hypoxia down to 86% on room air at the time of admission. Laboratory Tests 10/19/24 10/20/24 10/21/24 23:45 07:26 04:51 WBC 15.4 H 12.8 H 9.9 He is off supplemental oxygen. His respiratory failure is thought to be secondary to community-acquired pneumonia. Please see details of treatment below. (3) Pneumonia: Impression: Community-acquired pneumonia. This patient is day 3 of 5 for Rocephin and day 3of 3 for azithromycin. Since he has pulled out his IV, I am changing his azithromycin to oral and his rocephin to augmentin. . Qualifiers: Laterality: unspecified laterality Lung location: unspecified part of lung Pneumonia type: due to unspecified organism Qualified Code(s): J18.9 - Pneumonia, unspecified organism (4) Congestive heart failure (CHF): Impression: History of AK in 2019. peribronchial cuffing seen on chest x-ray indicative of some pulmonary edema. He has since been seen by cardiology in the past. In the diagnosis section of his chart I see an ejection fraction recorded as 35%. I cannot find any echocardiogram on file to correlate with this number.He does have established cardiology in the area. He is a patient at the [place]. BNP was not measured at admission. He does not have increasing hypoxia. I will continue on his currently ordered dose of diuretics which is Lasix 20 mg IV twice daily. He does not have any significant peripheral edema at this time. Qualifiers: Heart failure chronicity: acute on chronic Heart failure type: systolic Qualified Code(s): I50.23 - Acute on chronic systolic (congestive) heart failure (5) Urinary tract infection: Impression: Urinalysis obtained at the time of admission is negative for infection. This patient does not have a urinary tract infection. Qualifiers: Hematuria presence: without hematuria Urinary tract infection type: a cute cystitis Qualified Code(s): N30.00 - Acute cystitis without hematuria (6) Hypertension: Impression: Past medical history of hypertension. Also in reviewing the records there is some issues with compliance of with medications occasionally taking too much medication and having symptomatic hypotension. He is currently on carvedilol 12.5 mg twice daily, hydralazine 50 mg twice daily, isosorbide 30 mg daily losartan 100 mg every other day I do not see a GLP-1 prescribed for his CHF. Selected Entries 10/20/24 20:28 10/20/24 23:30 10/21/24 05:12 Pulse Rate [Brachial] Pulse Rate [Monitoring electrodes] 73 69 Pulse Rate [Radial] 74 Blood Pressure [Right Brachial artery] 148/88 H 148/90 H 156/93 H 10/21/24 09:00 10/21/24 13:00 Pulse Rate [Brachial] 76 72 Pulse Rate [Monitoring electrodes] Pulse Rate [Radial] Blood Pressure [Right Brachial artery] 127/70 134/84 H Qualifiers: Hypertension type: unspecified Qualified Code(s): I10 - Essential (primary) hypertension (7) Seizure disorder: Impression: History of traumatic brain injury many years ago. Patient is on seizure medications at baseline. These have been continued while here. 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 I have continued this medication. I have spent 51 minutes in the care of this patient today. This includes time [id number], review and ordering of diagnostic imaging and laboratory studies and consultation with other providers. Monitoring the patient's signs symptoms, evaluation of medication effectiveness and patient's response to treatment.
[2024-10-21] MEDS: FUROSEMIDE 20 MG TABLET PO SCH (21:36)
[2024-10-21] MEDS: AMOX/CLAV 875 MG/125 MG TABLET PO SCH (21:38)
[2024-10-21] MEDS: QUEtiapine 25 MG TABLET PO SCH (21:38)
[2024-10-21] MEDS: SENNA 8.6 MG TABLET PO SCH (23:04)
[2024-10-21] MEDS: DOCUSATE SODIUM 250 MG CAPSULE PO SCH (23:04)
[2024-10-21] MEDS: AZITHROMYCIN 250 MG TABLET PO SCH (23:04)
[2024-10-22 05:56] LABS: CALCIUM 8.8 mg/dL (8.5-10.3); CREATININE 1.2 mg/dL (0.6-1.3); POTASSIUM 3.6 mmol/L (3.5-4.5)
[2024-10-22] MEDS: ASPIRIN CHEW 81 MG TABLET PO SCH (09:38)
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
--- NOTE | 2024-10-22 19:40 | PROVIDER PROGRESS NOTE ---
Subjective Prog Note Date Prog Note Date: 10/22/24 Subjective Subjective: He was able to sleep 6 hours last night with a chest Seroquel administration. This is more than he has slept in quite some time. He is also eating well today his daughter is at the bedside and she is happy that he slept well last night but a bit concerned as he has been somewhat sleepy today. Current Medications Current Medications Current Medications: Current Medications Generic Name Dose Route Start Last Admin Trade Name Vidhya PRN Reason Stop Dose Admin Acetaminophen 650 mg 10/20/24 00:39 Acetaminophen 325 Mg Tablet PO Q4HR PRN Pain 1 to 4, or Fever Amoxicillin/Clavulanate Potassium 1 tab 10/21/24 21:00 10/22/24 09:38 Amox/Clav 875 Mg/125 Mg Tablet PO 10/24/24 09:01 1 tab BID SAQIB Administration Apixaban 5 mg 10/20/24 09:00 10/22/24 09:40 Apixaban 5 Mg Tablet PO 5 mg BID SAQIB Administration Aspirin 81 mg 10/22/24 09:00 10/22/24 09:38 Aspirin Chew 81 Mg Tablet PO 81 mg DAILY SAQIB Administration Atorvastatin Calcium 20 mg 10/20/24 21:00 10/21/24 21:38 Atorvastatin 10 Mg Tablet PO 20 mg QPM SAQIB Administration Carvedilol 12.5 mg 10/20/24 09:00 10/22/24 09:38 Carvedilol 12.5 Mg Tablet PO 12.5 mg BID SAQIB Administration Docusate Sodium 250 - 500 mg 10/21/24 22:35 10/22/24 09:40 Docusate Sodium 250 Mg Capsule PO 250 mg DAILY SAQIB Administration Finasteride 5 mg 10/20/24 09:00 10/22/24 09:39 Finasteride 5 Mg Tablet PO 5 mg DAILY SAQIB Administration Furosemide 10 mg 10/21/24 16:00 10/22/24 09:40 Furosemide 20 Mg Tablet PO 10 mg DAILY SAQIB Administration Gabapentin 300 mg 10/20/24 09:00 10/22/24 09:40 Gabapentin 300 Mg Capsule PO 300 mg BID SAQIB Administration Hydralazine HCl 50 mg 10/20/24 09:00 10/22/24 09:38 Hydralazine 25 Mg Tablet PO 50 mg BID SAQIB Administration Isosorbide Mononitrate 30 mg 10/20/24 09:00 10/22/24 09:39 Isosorbide Mononitrate Er 30 Mg Tablet PO 30 mg DAILY SAQIB Administration Lamotrigine 150 mg 10/20/24 09:00 10/22/24 09:39 Lamotrigine 100 Mg Tablet PO 150 mg BID SAQIB Administration Levetiracetam 500 mg 10/20/24 09:00 10/22/24 09:39 Levetiracetam 250 Mg Tablet PO 500 mg BID SAQIB Administration Losartan Potassium 100 mg 10/20/24 09:00 Losartan 50 Mg Tablet PO Q OTHER DAY SAQIB Morphine Sulfate 2 mg 10/20/24 00:39 Morphine 2 Mg/Ml Carpuject IVP Q2HR PRN Pain 8 to 10 Ondansetron HCl 4 mg 10/20/24 00:39 Ondansetron 4 Mg/2 Ml Vial IVP Q6HR PRN Nausea / Vomiting Oxycodone HCl 5 mg 10/20/24 00:39 Oxycodone 5 Mg Tablet PO Q4HR PRN Pain 5 to 7 Pantoprazole Sodium 40 mg 10/20/24 09:00 10/22/24 09:39 Pantoprazole 40 Mg Tablet PO 40 mg DAILY SAQIB Administration Polyethylene Glycol 17 gm 10/23/24 09:00 Polyethylene Glycol 3350 17 Gm Packet PO DAILY SAQIB Quetiapine Fumarate 12.5 mg 10/22/24 21:00 Quetiapine 25 Mg Tablet PO QPM SAQIB Senna 8.6 - 17.2 mg 10/21/24 22:35 10/22/24 09:40 Senna 8.6 Mg Tablet PO 8.6 mg DAILY SAQIB Administration Sodium Chloride 10 ml 10/20/24 00:39 Sodium Chloride Flush 0.9% 10 Ml Syringe IVP PRN PRN NEEDED PER PROVIDER ORDERS Sodium Chloride 10 ml 10/20/24 01:00 10/22/24 09:41 Sodium Chloride Flush 0.9% 10 Ml Syringe IVP 10 ml 0100,0900,1700 SAQIB Administration Tamsulosin HCl 0.4 mg 10/20/24 09:00 10/22/24 09:38 Tamsulosin 0.4 Mg Capsule PO 0.4 mg BID SQAIB Administration Trazodone HCl 100 mg 10/20/24 21:00 10/21/24 21:37 Trazodone 50 Mg Tablet PO 100 mg HS SAQIB Administration Venlafaxine HCl 225 mg 10/20/24 09:00 10/22/24 09:39 Venlafaxine 37.5 Mg Tablet PO 225 mg DAILY SAQIB Administration Objective Vital Signs/Intake & Output Reviewed Vital Signs: Yes Vital Signs: Vital Signs x48h Temp Pulse Resp BP Pulse Ox 10/22/24 16:18 36.6 C 75 20 130/77 92 10/22/24 14:00 36.5 C 69 20 113/61 92 Intake & Output: Intake & Output 10/19/24 10/20/24 10/21/24 10/22/24 23:59 23:59 23:59 23:59 Intake Total 2450 / 2450 840 / 840 630 / 630 Output Total 550 / 550 900 / 900 300 / 300 Balance 1900 / 1900 -60 / -60 330 / 330 Weight (kg) 104 kg 99.5 kg 98 kg 98.5 kg Objective General Appearance: positive No acute distress Eyes Bilateral: positive Conjunctivae nml Neck: positive Nml inspection Respiratory: positive No respiratory distress and Breath sounds nml; negative Wheezes, Rales or Rhonchi Cardiovascular: positive Regular rate & rhythm Abdomen: positive Non-tender and No distention Back: positive Nml inspection Skin: positive Color nml Extremities: positive Non-tender and No pedal edema Neurologic/Psychiatric: positive Other (oriented to place and self, not time. ) Lab Results 10/21/24 04:51 10/22/24 05:20 Other Labs: Lab Results x24hrs 10/22/24 Range/Units 05:20 Sodium 142 (135-145) mmol/L Potassium 3.6 (3.5-4.5) mmol/L Chloride 107 (101-111) mmol/L Carbon Dioxide 30 (21-32) mmol/L Anion Gap 5.0 L (6-13) BUN 21 H (6-20) mg/dL Creatinine 1.2 (0.6-1.3) mg/dL Estimated GFR (MDRD) 58 L (>89) Glucose 118 H (74-104) mg/dL Calcium 8.8 (8.5-10.3) mg/dL Assessment/Plan Problem List (1) Encephalopathy: Impression: Improving given the fact that he has been able to get some sleep and his son Ox[place] was better controlled with Seroquel. His daughter still feels that he is significantly deconditioned at this point and would benefit from [facility]. He was seen today by physical therapy who adamantly concurs with this thought. We are in the process of looking for placement for him. He is, at this point medically clear for [facility] to [facility]. 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 There is some increase in the metabolic effects of antipsychotic drugs with this mutation but not necessarily decreased clearance of the drugs. I will decrease his dose from 25 mg to 12.5 mg this evening and see how he does with that overnight. His daughter really appreciates the sleep that he was able to get last night and the fact that the Seroquel does seem to be controlling his nighttime agitation. He does not have any focal neurologic deficits. He is moving all extremities and following commands. He is oriented to self and place but not to time. Additionally I had sent a fax to the [facility] with some information regarding possible transfer to the [facility] for continued care., However I think the best course for this patient would probably be [facility]. Did discuss advance care planning with the daughter. She would like to complete a POLST. She like would like her father to be able to sign the POLST. Unfortunately his mental status is such that he is unable at this point. We will revisit this when and if his delirium clears. He remains full code at this time. Family would like this to remain this case for now. Qualifiers: Encephalopathy type: metabolic Qualified Code(s): G93.41 - Metabolic encephalopathy (2) Acute hypoxic respiratory failure: Impression: Resolved. He has no history of underlying lung disease. He is not on any inhalers at baseline. He does not currently smoke. He came in with a leukocytosis of 15.4. There are no recorded fevers. He did have hypoxia down to 86% on room air at the time of admission. Laboratory Tests 10/19/24 10/20/24 10/21/24 23:45 07:26 04:51 WBC 15.4 H 12.8 H 9.9 He is off supplemental oxygen. His respiratory failure is thought to be secondary to community-acquired pneumonia. Please see details of treatment below. Lab holiday today, will repeat labs in the AM. (3) Pneumonia: Impression: Community-acquired pneumonia. This patient is day 4 of 5 for Rocephin and day 3of 3 for azithromycin. He pulled out his IV. it has since been replaced, but will finish course of abx as oral. Qualifiers: Pneumonia type: due to unspecified organism Laterality: unspecified laterality Lung location: unspecified part of lung Qualified Code(s): J18.9 - Pneumonia, unspecified organism (4) Congestive heart failure (CHF): Impression: History of [place] in 2019. peribronchial cuffing seen on chest x-ray indicative of some pulmonary edema. He has since been seen by cardiology in the past. In the diagnosis section of his chart I see an ejection fraction recorded as 35%. I cannot find any echocardiogram on file to correlate with this number.He does have established cardiology in the area. He is a patient at the [facility]. BNP was not measured at admission. He does not have increasing hypoxia. I will continue on his currently ordered dose of diuretics which is Lasix 20 mg IV twice daily. He does not have any significant peripheral edema at this time. Qualifiers: Heart failure type: systolic Heart failure chronicity: acute on chronic Qualified Code(s): I50.23 - Acute on chronic systolic (congestive) heart failure (5) Urinary tract infection: Impression: Urinalysis obtained at the time of admission is negative for infection. This patient does not have a urinary tract infection. Qualifiers: Hematuria presence: without hematuria Urinary tract infection type: a cute cystitis Qualified Code(s): N30.00 - Acute cystitis without hematuria (6) Hypertension: Impression: Past medical history of hypertension. Also in reviewing the records there is some issues with compliance of with medications occasionally taking too much medication and having symptomatic hypotension. He is currently on carvedilol 12.5 mg twice daily, hydralazine 50 mg twice daily, isosorbide 30 mg daily losartan 100 mg every other day I do not see a GLP-1 prescribed for his CHF. B lood pressures are well controlled on these meds without hypotension. I will continue. Selected Entries 10/21/24 21:00 10/21/24 23:45 10/22/24 14:00 Pulse Rate [Brachial] 62 68 69 Blood Pressure [Right Brachial artery] 147/82 H 127/77 113/61 10/22/24 16:18 Pulse Rate [Brachial] 75 Blood Pressure [Right Brachial artery] 130/77 Qualifiers: Hypertension type: unspecified Qualified Code(s): I10 - Essential (primary) hypertension (7) Seizure disorder: Impression: History of traumatic brain injury many years ago. Patient is on seizure medications at baseline. These have been continued while here. 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 I have continued this medication. I have spent 36 minutes in the care of this patient today. This includes time [id number], review and ordering of diagnostic imaging and laboratory studies. Monitoring the patient's signs symptoms, evaluation of medication effectiveness and patient's response to treatment.
[2024-10-22] MEDS: QUEtiapine 25 MG TABLET PO SCH (20:41)
[2024-10-23 05:53] LABS: CALCIUM 8.7 mg/dL (8.5-10.3); CREATININE 1.3 mg/dL (0.6-1.3)
[2024-10-23] MEDS: polyethylene glycoL 3350 17 GM PACKET PO SCH (09:19)
--- NOTE | 2024-10-23 15:06 | PROVIDER PROGRESS NOTE ---
Subjective Prog Note Date Prog Note Date: 10/23/24 Subjective Subjective: doing well. no issues. he has been able to sleep at night. He has been in the chair this afternoon. Current Medications Current Medications Current Medications: Current Medications Generic Name Dose Route Start Last Admin Trade Name Vidhya PRN Reason Stop Dose Admin Acetaminophen 650 mg 10/20/24 00:39 Acetaminophen 325 Mg Tablet PO Q4HR PRN Pain 1 to 4, or Fever Amoxicillin/Clavulanate Potassium 1 tab 10/21/24 21:00 10/23/24 09:20 Amox/Clav 875 Mg/125 Mg Tablet PO 10/24/24 09:01 1 tab BID SAQIB Administration Apixaban 5 mg 10/20/24 09:00 10/23/24 09:21 Apixaban 5 Mg Tablet PO 5 mg BID SAQIB Administration Aspirin 81 mg 10/22/24 09:00 10/23/24 09:21 Aspirin Chew 81 Mg Tablet PO 81 mg DAILY SAQIB Administration Atorvastatin Calcium 20 mg 10/20/24 21:00 10/22/24 20:40 Atorvastatin 10 Mg Tablet PO 20 mg QPM SAQIB Administration Carvedilol 12.5 mg 10/20/24 09:00 10/23/24 09:23 Carvedilol 12.5 Mg Tablet PO 12.5 mg BID SAQIB Administration Docusate Sodium 250 - 500 mg 10/21/24 22:35 10/23/24 09:23 Docusate Sodium 250 Mg Capsule PO 250 mg DAILY SAQIB Administration Finasteride 5 mg 10/20/24 09:00 10/23/24 09:23 Finasteride 5 Mg Tablet PO 5 mg DAILY SAQIB Administration Furosemide 10 mg 10/21/24 16:00 10/23/24 09:21 Furosemide 20 Mg Tablet PO 10 mg DAILY SAQIB Administration Gabapentin 300 mg 10/20/24 09:00 10/23/24 09:23 Gabapentin 300 Mg Capsule PO 300 mg BID SAQIB Administration Hydralazine HCl 50 mg 10/20/24 09:00 10/23/24 09:23 Hydralazine 25 Mg Tablet PO 50 mg BID SAQIB Administration Isosorbide Mononitrate 30 mg 10/20/24 09:00 10/23/24 09:23 Isosorbide Mononitrate Er 30 Mg Tablet PO 30 mg DAILY SAQIB Administration Lamotrigine 150 mg 10/20/24 09:00 10/23/24 09:22 Lamotrigine 100 Mg Tablet PO 150 mg BID SAQIB Administration Levetiracetam 500 mg 10/20/24 09:00 10/23/24 09:20 Levetiracetam 250 Mg Tablet PO 500 mg BID SAQIB Administration Losartan Potassium 100 mg 10/20/24 09:00 Losartan 50 Mg Tablet PO Q OTHER DAY SAQIB Morphine Sulfate 2 mg 10/20/24 00:39 Morphine 2 Mg/Ml Carpuject IVP Q2HR PRN Pain 8 to 10 Ondansetron HCl 4 mg 10/20/24 00:39 Ondansetron 4 Mg/2 Ml Vial IVP Q6HR PRN Nausea / Vomiting Oxycodone HCl 5 mg 10/20/24 00:39 Oxycodone 5 Mg Tablet PO Q4HR PRN Pain 5 to 7 Pantoprazole Sodium 40 mg 10/20/24 09:00 10/23/24 09:23 Pantoprazole 40 Mg Tablet PO 40 mg DAILY SAQIB Administration Polyethylene Glycol 17 gm 10/23/24 09:00 10/23/24 09:19 Polyethylene Glycol 3350 17 Gm Packet PO 17 gm DAILY SAQIB Administration Quetiapine Fumarate 12.5 mg 10/22/24 21:00 10/22/24 20:41 Quetiapine 25 Mg Tablet PO 12.5 mg QPM SAQIB Administration Senna 8.6 - 17.2 mg 10/21/24 22:35 10/23/24 09:21 Senna 8.6 Mg Tablet PO 8.6 mg DAILY SAQIB Administration Sodium Chloride 10 ml 10/20/24 00:39 Sodium Chloride Flush 0.9% 10 Ml Syringe IVP PRN PRN NEEDED PER PROVIDER ORDERS Sodium Chloride 10 ml 10/20/24 01:00 10/23/24 09:20 Sodium Chloride Flush 0.9% 10 Ml Syringe IVP 10 ml 0100,0900,1700 SAQIB Administration Tamsulosin HCl 0.4 mg 10/20/24 09:00 10/23/24 09:21 Tamsulosin 0.4 Mg Capsule PO 0.4 mg BID SAQIB Administration Trazodone HCl 100 mg 10/20/24 21:00 10/22/24 20:40 Trazodone 50 Mg Tablet PO 100 mg HS SAQIB Administration Venlafaxine HCl 225 mg 10/20/24 09:00 10/23/24 09:19 Venlafaxine 37.5 Mg Tablet PO 225 mg DAILY SAQIB Administration Objective Vital Signs/Intake & Output Reviewed Vital Signs: Yes Vital Signs: Vital Signs x48h Temp Pulse Pulse Resp BP Pulse Ox 10/23/24 08:39 36.7 C 74 74 20 154/87 H 89 L Intake & Output: Intake & Output 10/20/24 10/21/24 10/22/24 10/23/24 23:59 23:59 23:59 23:59 Intake Total 2450 / 2450 840 / 840 1080 / 1080 630 / 630 Output Total 550 / 550 900 / 900 300 / 300 Balance 1900 / 1900 -60 / -60 780 / 780 630 / 630 Weight (kg) 99.5 kg 98 kg 98.5 kg 102 kg Objective General Appearance: positive No acute distress Eyes Bilateral: positive Conjunctivae nml Neck: positive Nml inspection Respiratory: positive No respiratory distress and Breath sounds nml; negative Wheezes, Rales or Rhonchi Cardiovascular: positive Regular rate & rhythm Abdomen: positive Non-tender and No distention Back: positive Nml inspection Skin: positive Color nml Extremities: positive Non-tender and No pedal edema Neurologic/Psychiatric: positive Other (oriented to place and self, not time. demonstrates better awareness of his situation today. ) Lab Results 10/21/24 04:51 10/23/24 05:04 Other Labs: Lab Results x24hrs 10/23/24 Range/Units 05:04 Sodium 142 (135-145) mmol/L Potassium 4.0 (3.5-4.5) mmol/L Chloride 109 (101-111) mmol/L Carbon Dioxide 27 (21-32) mmol/L Anion Gap 6.0 (6-13) BUN 23 H (6-20) mg/dL Creatinine 1.3 (0.6-1.3) mg/dL Estimated GFR (MDRD) 53 L (>89) Glucose 115 H (74-104) mg/dL Calcium 8.7 (8.5-10.3) mg/dL Assessment/Plan Problem List (1) Encephalopathy: Impression: Improving given the fact that he has been able to get some sleep and his owning was better controlled with Seroquel. PT and OT in agreement that SNF is needed. Medically clear awaiting SNF authorization. 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 I will decrease his dose from 25 mg to 12.5 mg, and therapeutic effect was still gained. He does not have any focal neurologic deficits. He is moving all extremities and following commands. He is oriented to self and place, month and year but not to day of the week. Additionally I had sent a fax to the [facility] with some information regarding possible transfer to the [facility] for continued care., However I think the best course for this patient would probably [facility]. Did discuss advance care planning with the daughter. She would like to complete a POLST. She like would like her father to be able to sign the POLST. Unfortunately his mental status is such that he is unable at this point. We will revisit this when and if his delirium clears. He remains full code at this time. Family would like this to remain this case for now. Qualifiers: Encephalopathy type: metabolic Qualified Code(s): G93.41 - Metabolic encephalopathy (2) Acute hypoxic respiratory failure: Impression: Resolved. He has no history of underlying lung disease. He is not on any inhalers at baseline. He does not currently smoke. He came in with a leukocytosis of 15.4. There are no recorded fevers. He did have hypoxia down to 86% on room air at the time of admission. 10/19/24 10/20/24 10/21/24 23:45 07:26 04:51 WBC 15.4 H 12.8 H 9.9 He is off supplemental oxygen. His respiratory failure is thought to be secondary to community-acquired pneumonia. Please see details of treatment below. (3) Pneumonia: Impression: Community-acquired pneumonia. He has 2 doses remaining of Augmentin. Clincally improved. Qualifiers: Pneumonia type: due to unspecified organism Laterality: unspecified laterality Lung location: unspecified part of lung Qualified Code(s): J18.9 - Pneumonia, unspecified organism (4) Congestive heart failure (CHF): Impression: History of [place] in 2019. peribronchial cuffing seen on chest x-ray indicative of some pulmonary edema. He has since been seen by cardiology in the past. In the diagnosis section of his chart I see an ejection fraction recorded as 35%. I cannot find any echocardiogram on file to correlate with this number.He does have established cardiology in the area. He is a patient at the [facility]. BNP was not measured at admission. He does not have increasing hypoxia. I have transitioned him to home dose lasix, 10mg daily. He does not have any significant peripheral edema at this time. Qualifiers: Heart failure type: systolic Heart failure chronicity: acute on chronic Qualified Code(s): I50.23 - Acute on chronic systolic (congestive) heart failure (5) Urinary tract infection: Impression: Urinalysis obtained at the time of admission is negative for infection. This patient does not have a urinary tract infection. Qualifiers: Hematuria presence: without hematuria Urinary tract infection type: a cute cystitis Qualified Code(s): N30.00 - Acute cystitis without hematuria (6) Hypertension: Impression: Past medical history of hypertension. Also in reviewing the records there is some issues with compliance of with medications occasionally taking too much medication and having symptomatic hypotension. He is currently on carvedilol 12.5 mg twice daily, hydralazine 50 mg twice daily, isosorbide 30 mg daily losartan 100 mg every other day I do not see a GLP-1 prescribed for his CHF. B lood pressures are well controlled on these meds without hypotension. I will continue. Selected Entries 10/23/24 00:20 10/23/24 08:39 Pulse Rate [Brachial] 76 Pulse Rate [Radial] 74 Blood Pressure [Right Brachial artery] 151/93 H 154/87 H Qualifiers: Hypertension type: unspecified Qualified Code(s): I10 - Essential (primary) hypertension (7) Seizure disorder: Impression: History of traumatic brain injury many years ago. Patient is on seizure medications at baseline. These have been continued while here. 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 I have continued this medication. I have spent 26 minutes in the care of this patient today. This includes time [id number], review and ordering of diagnostic imaging and laboratory studies. Monitoring the patient's signs symptoms, evaluation of medication effectiveness and patient's response to treatment. He is medically clear awaiting SNF
[2024-10-23] MEDS: oxyCODONE 5 MG TABLET PO PRN (23:55)
[2024-10-24 06:11] LABS: CALCIUM 8.6 mg/dL (8.5-10.3); CREATININE 1.1 mg/dL (0.6-1.3)
[2024-10-24 07:59] VITALS: O2SAT 92
[2024-10-24] MEDS: LOSARTAN 50 MG TABLET PO SCH (10:13)
--- NOTE | 2024-10-24 12:56 | Discharge Summary ---
"Discharge Summary Admit Date: 10/20/24 Discharge Date: 10/24/24 Discharging Provider: Patrica Hopkins PA-C Primary Care Provider: DAVID Shelley Code Status: Attempt Resuscitation DIAGNOSES Discharge Diagnoses with Status of Each Condition: Encephalopathy, present on admission continues Acute hypoxic respiratory failure, resolved Community-acquired pneumonia, treated and resolved Congestive heart failure chronic and stable hypertension, chronic and stable Seizure disorder status post TBI Hypercoagulable state, MTHFR enzyme mutation HPI History of Present Illness: This is an 84 yo gentleman with pmhx of htn, hld, cad, mthfr def on AC,, seizure disorder who presented with fever, confusion/ams and unwell feeling. Pt brought in by family and was noted with coughing and had emesis. Pt denied chest pain, LH or dizziness, no headache. Labs showed significant for wbc 15.4k, CXR showed peribronchial cuffing with increased interstitial markings suggestive of pulmonary edema. Per son-in-law at bedside pt was doing well early in the am and noted later in the day pt not himself and then in the evening pt was completel altered, unable to recognize family members, was delusional and paranoid and given this EMS was called. CONSULTS | PROCEDURES Procedures: Chest x-ray: Peribronchial cuffing with increased interstitial markings suggestive of mild to moderate pulmonary edema HOSPITAL COURSE Hospital Course: (1) Encephalopathy: Improving given the fact that he has been able to get some sleep and his was better controlled with Seroquel. PT and OT in agreement that SNF is needed. Medically clear since 10/22 awaiting SNF authorization. 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 Dose decreased from 25 mg to 12.5 mg, and therapeutic effect was still gained. He does not have any focal neurologic deficits. He is moving all extremities and following commands. He is oriented to self and place, month and year but not to day of the week. Did discuss advance care planning with the daughter. She would like to complete a POLST. She like would like her father to be able to sign the POLST. Unfortunately his mental status is such that he is unable at this point. We will revisit this when and if his delirium clears. He remains full code at this time. Family would like this to remain this case for now. (2) Acute hypoxic respiratory failure: Resolved. He has no history of underlying lung disease. He is not on any inhalers at baseline. He does not currently smoke. He came in with a leukocytosis of 15.4. There are no recorded fevers. He did have hypoxia down to 86% on room air at the time of admission. 10/19/24 10/20/24 10/21/24 23:45 07:26 04:51 WBC 15.4 H 12.8 H 9.9 He is off supplemental oxygen. His respiratory failure is thought to be secondary to community-acquired pneumonia. Please see details of treatment below. (3) Pneumonia: Community-acquired pneumonia. He finished 3 days of azithromycin IV. He finished 3 days of Rocephin IV and then was converted to Augmentin for the additional length of therapy due to the fact that he pulled out his IV. (4) Congestive heart failure (CHF): History of NE in 2019. peribronchial cuffing seen on chest x-ray indicative of some pulmonary edema. He has since been seen by cardiology in the past. In the diagnosis section of his chart I see an ejection fraction recorded as 35%. I cannot find any echocardiogram on file to correlate with this number.He does have established cardiology in the area. He is a patient at [facility]. BNP was not measured at admission. He does not have increasing hypoxia. I have transitioned him to home dose lasix, 10mg daily. He does not have any significant peripheral edema at this time. (5) Urinary tract infection: This is a listed diagnosis at the time of admission. Urinalysis obtained at the time of admission is negative for infection. This patient does not have a urinary tract infection. (6) Hypertension: Past medical history of hypertension. Also in reviewing the records there is some issues with compliance of with medications occasionally taking too much medication and having symptomatic hypotension. He is currently on carvedilol 12.5 mg twice daily, hydralazine 50 mg twice daily, isosorbide 30 mg daily losartan 100 mg every other day I do not see a GLP-1 prescribed for his CHF. B lood pressures are well controlled on these meds without hypotension. I did change his Cozaar from 100 mg every other day to 50 mg daily. Rx was sent in prior to discharge. Patient was counseled as such in his discharge paperwork. Selected Entries 10/23/2499:20 10/24/2507:39 Pulse Rate [Brachial] 76 Pulse Rate [Radial] 74 Blood Pressure [Right Brachial artery] 151/93 H 154/87 H (7) Seizure disorder: History of traumatic brain injury many years ago. Patient is on seizure medications at baseline. These have been continued while here. (8) Hypercoagulable state: History of MTHFR deficiency with history of DVT, coronary artery disease status post stents and failed CABG he is on Eliquis. I have continued this medication. This patient has been medically clear for discharge to long term facility since 10/22/2024. On the morning of 10/24/24 his granddaughter told me that the patient's had become quite ill and was in [place] on life support. She told me that they would like to have the patient discharged from the hospital immediately. I prepared the paperwork and made phone contact with the daughter. She asked that I send medications which I did and asked the pharmacy to fill them urgently. After period of hours the daughter appeared at the hospital and insisted that the patient leave immediately without signing any paperwork. She was irritated that nursing staff did not have the patient in his clothes and in a wheelchair. This patient has difficulty sitting for any period of time. The patient had also refused to put on his clothes. The goal from staff had been to work with family so that they might understand how difficult it is for this patient to change positions and to sit up and to move from one device to another. The thought behind placing him in long term rehab had been that he was having decreased upper extremity strength and even using the sit to stand lift at home had become challenging. In any event, the daughter refused to sign paperwork, refused to go over discharge instructions and wheeled the patient to the curb. The nurse did accompany the daughter. The daughter then tried to get the patient up into an SUV. Because she was insistent staff did try to assist her in this endeavor. The patient wound up on his knees with his upper body on the passenger seat unable to get up into the SUV. Patient was transitioned back to wheelchair, other staff members came and we were able to hoist him up into the SUV. We did repeatedly ask the daughter what her plan was for mobility. She will need to get him out of the car, into the airport, through security, onto an airplane where he will need to sit for a period of hours (he does not sit for more than about 10 minutes at this point), and then back off of an airplane and into a car. She states she will figure it out as she goes she is absolutely insistent upon taking her father with her. Staff here has offered that we will care for her father and transition him over to long term. He is accepted at [facility] and we are awaiting insurance authorization. She insists upon taking him. The patient is not resistant to her desires, and she is his power of attorney lawyer. ALLERGIES Allergies Allergy/AdvReac Type Severity Reaction Status Date / Time No Known Drug Allergies Allergy Verified 10/19/24 23:30 MEDICATIONS Ambulatory Orders Medication Instructions Recorded Confirmed apixaban 5 mg tablet (Eliquis) 5 mg PO BID 07/19/23 atorvastatin 20 mg tablet 20 mg PO QPM 07/19/23 finasteride 5 mg tablet 5 mg PO DAILY 07/19/2310/20 gabapentin 600 mg tablet 300 mg PO BID 07/19/2310/20 (Neurontin) isosorbide mononitrate 30 mg 30 mg PO DAILY 07/19/23 0 10/20/24 tablet,extended release 24 hr nitroglycerin 0.4 mg sublingual 0.4 mg sublingual Q5MI NX3 PRN 07/19/23 10/20/24 tablet Chest Pain pantoprazole 40 mg tablet,delayed 40 mg PO DAILY 07/1910/20/24 release trazodone 100 mg tablet 100 mg PO HS 07/19/23 ascorbic acid (vitamin C) 1,000 mg 1 g PO DAILY 10/20/24 capsule cholecalciferol (vitamin D3) 25 25 mcg PO BID 03/16/24 10/20/24 mcg (1,000 unit) capsule levetiracetam 500 mg tablet 500 mg PO BID 03/16/24 mecobalamin (vitamin B12) 1,000 2,000 mcg PO DAILY 10/20/24 mcg chewable tablet tamsulosin 0.4 mg capsule 0.4 mg PO BID 03/16/2410/20 venlafaxine 75 mg tablet 225 mg PO DAILY 03/16/24 vitamin E (dl, acetate) 180 mg 180 mg PO DAILY 4 10/20/24 (400 unit) capsule carvedilol 12.5 mg tablet 12.5 mg PO BID 05/01/2409/23 hydralazine 50 mg tablet 50 mg PO BID 05/01/24 furosemide 20 mg tablet 10 mg PO QAM 07/27/24 lamotrigine 150 mg tablet 150 mg PO BID 07/27/2410/20 aspirin 81 mg chewable tablet 81 mg PO DAILY 10/20/24 10/20/24 (Nae Chewable Low Dose Aspirin) sennosides 8.6 mg tablet (Natural 8.6 mg PO DAILY PRN constipation 10/20/24 10/20/24 Senna Laxative) losartan 50 mg tablet 50 mg PO DAILY #30 tabs 08/15 quetiapine 25 mg tablet 12.5 mg (1/2 x 25 mg) PO QPM #30 10/24/24 tabs PHYSICAL EXAM AT DISCHARGE Vital Signs: Vital Signs x48h Temp Pulse Resp BP Pulse Ox 10/24/24 14:09 37.0 C 72 24 148/87 H 92 10/24/24 07:58 36.6 C 72 24 155/87 H 92 General Appearance: positive No acute distress Eyes Bilateral: positive PERRL ENT: positive ENT inspection nml Neck: positive Nml inspection Respiratory: positive No respiratory distress and Breath sounds nml Cardiovascular: positive Regular rate & rhythm Abdomen: positive Non-tender and No distention Skin: positive Color nml Neurologic/Psychiatric: positive Motor nml, Sensation nml, Weakness (Generalized weakness. Unable to stand without sit to stand lift) and Other (Oriented to place situation month and year but not day or date also oriented to self) LABS 10/21/24 04:51 10/24/24 05:21 FOLLOW UP Follow Up: Tia when patient returns home TIME SPENT Time Spent in Discharge (Minutes): 40 Discharge Plan Discharge Patient Disposition: Home, Self Care Condition: Fair Prescriptions: New losartan 50 mg Tablet 50 mg PO DAILY Qty: 30 0RF quetiapine 25 mg Tablet 12.5 mg PO QPM Qty: 30 0RF Continued gabapentin [Neurontin] 600 MG tablet 300 mg PO BID atorvastatin 20 MG tablet 20 mg PO QPM isosorbide mononitrate 30 MG tablet extended release 24 hr 30 mg PO DAILY trazodone 100 MG tablet 100 mg PO HS pantoprazole 40 MG tablet,delayed release (DR/EC) 40 mg PO DAILY nitroglycerin 0.4 MG tablet, sublingual 0.4 mg sublingual [id number] PRN (Reason: Chest Pain) Patient Comments: last taken about two weeks ago per daughter finasteride 5 MG tablet 5 mg PO DAILY Eliquis 5 MG tablet 5 mg PO BID tamsulosin 0.4 mg capsule 0.4 mg PO BID carvedilol 12.5 mg tablet 12.5 mg PO BID Rx Instructions: must administer with a meal/food hydralazine 50 mg tablet 50 mg PO BID furosemide 20 mg tablet 10 mg PO QAM aspirin [Nae Chewable Aspirin] 81 mg tablet,chewable 81 mg PO DAILY sennosides [Natural Senna Laxative] 8.6 mg tablet 8.6 mg PO DAILY PRN (Reason: constipation) levetiracetam 500 mg tablet 500 mg PO BID venlafaxine 75 mg tablet 225 mg PO DAILY mecobalamin (vitamin B12) 1,000 mcg tablet,chewable 2,000 mcg PO DAILY ascorbic acid (vitamin C) 1,000 mg capsule 1 g PO DAILY vitamin E (dl, acetate) 180 mg (400 unit) capsule 180 mg PO DAILY cholecalciferol (vitamin D3) 25 mcg (1,000 unit) capsule 25 mcg PO BID lamotrigine 150 mg tablet 150 mg PO BID Discontinued clonidine HCl .ROUTE Patient Comments: Patient's daughter unsure of medication strength losartan 100 mg tablet 100 mg PO Q OTHER DAY Activity Restrictions: Activity as Tolerated Diet: Cardiac Health Concerns: You are an 84-year-old gentleman who came into the hospital with low oxygen level. This was due to pneumonia. You received enough antibiotics for treatment of this pneumonia and you were able to wean off of oxygen therapy. However you are quite weak at this point. Because of this together with physical and Occupational Therapy your family decided that going to long term for rehab would be the best option at this point. We are waiting to get approval from insurance to get you to long term when your got sick. Because your is sick your daughter is requesting that I discharge you right now so that you may go to see your . You are weak you are unable to get up by yourself you need lots of assistance. There are 2 changes being made to your medications upon discharge from the hospital instead of taking losartan also called Cozaar 100 mg every other day we are changing it to taking 50 mg every day. Also I have added a medication to your bedtime medications this medication is called Seroquel also known as quetiapine. It has been quite effective in helping you get a good night sleep here in the hospital. I would like you to continue this as you transition out of the hospital. When you get back home I would highly recommend that you follow-up with your primary care provider, Tee Watts as soon as you can get in to see him. Print Language: Icelandic Patient Instructions: Dementia Follow-up Care: Tee Weber, DNP, TEST [employer]IL[employer], [employer] [Primary Care Provider] -"
[2024-10-24 14:11] VITALS: BP 148/87; TEMP 98.6
[2024-10-25] MEDS ORDERED: LOSARTAN 50 MG TABLET PO SCH (09:00)
== END 2024-10-24 15:00 | disposition home or self-care (01) | DRG 189 ==
LOC: MS2 23:18 → ED 23:18 → MS2 10-20 02:07
PROVIDERS: ADMIT Internal Medicine; ATTEND Physician Assistant Medical
DX: I50.23 Acute on chronic systolic (congestive) heart failure; N30.00 Acute cystitis without hematuria; E72.12 Methylenetetrahydrofolate reductase deficiency; R41.0 Disorientation, unspecified; G40.909 Epilepsy, unspecified, not intractable, without status epilepticus; I25.10 Atherosclerotic heart disease of native coronary artery without angina pectoris; Z95.5 Presence of coronary angioplasty implant and graft; I11.0 Hypertensive heart disease with heart failure; R53.1 Weakness; G93.41 Metabolic encephalopathy; I95.9 Hypotension, unspecified; Z99.3 Dependence on wheelchair; J18.9 Pneumonia, unspecified organism; Z87.820 Personal history of traumatic brain injury; Z86.718 Personal history of other venous thrombosis and embolism; J96.01 Acute respiratory failure with hypoxia; Z79.01 Long term (current) use of anticoagulants